=== PATIENT | female | born 1995 | race Caucasian/White ===

== ENCOUNTER 2019-12-17 08:02 | Outpatient (CLI) | payer BC, MEDICAID, SELFPAY ==
[2019-12-17 08:11] VITALS: BMI 35.9
[2019-12-17 08:18] VITALS: BP 144/69; PULSE 81
[2019-12-17 08:22] VITALS: RESP 16; TEMP 37
[2019-12-17 10:07] VITALS: BP 144/69; PULSE 98; RESP 16; TEMP 37
== END 2019-12-17 10:17 | disposition home or self-care (01) ==
LOC: OPOB 08:02 → OBGYN 08:07
PROVIDERS: Family Provider Family Medicine; PCP Family Medicine; Visit Provider Family Medicine
DX: O26.899 Other specified pregnancy related conditions, unspecified trimester (principal); Z3A.00 Weeks of gestation of pregnancy not specified; R10.9 Unspecified abdominal pain
CPT/HCPCS: 59025; 99211

== ENCOUNTER 2019-12-17 18:50 | Inpatient (IN) | payer BC, MEDICAID, SELFPAY ==
[2019-12-17] VITALS (59 sets, daily range): BP systolic 0–159; BP diastolic 0–87; PULSE 62–91; TEMP 36.4–37; O2SAT 92–98; BMI 35.9
--- NOTE | 2019-12-17 18:13 | PM.OBGYHP ---
Providers/Chief Complaint Admitting Physician: Dr. 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 Patient presents at 39 weeks gestation with complaint of contractions onset 1 AM this morning and increasing in frequency and intensity. She was 2 cm dilated and 50% effaced yesterday at her clinic visit and had her membranes swept at that time. She stated that at 1 AM this morning her contractions were every 8 minutes. She timed them, and at 7 AM they were every 6 minutes. At that time she had into the hospital. When she arrived in the labor room this morning she was 3 cm dilated and 90% effaced and -2 station with irregular contractions. She was monitored for 2 hours and found to have no cervical change. She was discharged to home, and I recommended that she contact me at the office for any cervical exams requested during clinic hours. She presented to the office this afternoon at approximately 3 PM with complaint of contractions now at every 5 minutes lasting 45 to 60 seconds. She stated that Tylenol was not helping but that a warm shower did help her relax somewhat. Upon cervical exam she was found to be 4 to 4-1/2 cm dilated, 100% effaced and -1 to -2 station with a bulging bag of water. At this point, with cervical change in all 3 parameters, I advised her to report to the labor room. She reports no bleeding and no leakage of fluid. Her course has been complicated only by anemia of for which she is taken iron. Present Details : 1 Para: 0 Date of Last Menstrual Period: 03/19/19 Calculated Date of Delivery: 12/24/19 Gestational Age Based on Last Menstrual Period: 39 Dating criteria OB: LMP confirmed by 2nd trimester US care: good care Ultrasounds: normal mid trimester US Obstetrical complications: other (Anemia of ) Medical complications OB: none Labs Blood type OB HPI: O (+) positive Rubella: Immune RPR: Negative GBS: Negative HBsAG: Negative Other Lab Information: Antibody Screen: Negative HCT/HBG: Initially 13.0/37.7, 28-week recheck 9.9, 36-week recheck 9.7 Pap Test: Normal Urine Culture/Screen: Negative HIV Counseling/Testing: Negative Hepatitis C: Negative Chlamydia: Negative GC: Negative Varicella Titer: Immune MSAFP/Multiple Markers: Negative Diabetes Screen: 2-hour GTT done at beginning of : Fasting 86, 1 hour 143, 2-hour 121; 1 hour GTT done at 26 to 28 weeks gestation: 114 Tdap: Given 10/05/2019 Urine Drug Screen: Negative Review of Systems Const: Denies: fever : Reports: pelvic pain (Intermittent and consistent with contractions); Denies: vaginal odor, vaginal bleeding or vaginal discharge Medications/Allergies Allergies Allergy/AdvReac Type Severity Reaction Status Date / Time ibuprofen Allergy ADR-Swelling Verified 12/17/19 18:29 of the Eye PFSH 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 PFSH: Medical History (Updated 12/17/19 @ 18:44 by Laya Riley MD) Abnormal Pap smear of cervix Mild intermittent asthma Surgical History (Updated 12/17/19 @ 18:31 by Laya Riley MD) Hx of colposcopy with cervical biopsy Hx of tonsillectomy Family History (Updated 12/17/19 @ 18:35 by Laya Riley MD) Mother Thyroid disorder Father Lung disease Asthma Sister Lung disease Asthma Grandfather Diabetes Social History (Updated 12/17/19 @ 18:37 by Laya Riley MD) Smoking and tobacco status: never smoked Second hand smoke exposure: No Alcohol intake: never Substance/Drug Use: never Adopted: No Caregiver/support person: Yes Lives independently: Yes Marital status: Single Number of children: 0 Number of grandchildren: 0 Highest education level completed: Some College, No Degree 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 heart tones have a baseline in the 130s with moderate variability, many accelerations and no decelerations. Contractions are every 1-1/2 to 3 minutes and of moderate intensity. Const: COMMON NORMALS: oriented x3, healthy appearing, alert and well nourished GENERAL APPEARANCE: cooperative : MANUAL OB EXAM: dilated 4 cm, effaced fully and station (-1 to -2, vertex) Psych: COMMON NORMALS: mental status grossly normal, thought process normal, cooperative, affect normal, speech normal and activity/motor behavior normal Data : 12/17/19 19:00 A&P Assessment and plan (1) 39 weeks gestation of : Status: Acute (2) Spontaneous onset of labor: Patient was admitted to labor and delivery with onset of labor. She denies need for anything for pain right now. We discussed options for pain including an epidural. Status: Acute (3) Anemia affecting : Status: Acute Attestations Medical Necessity Statement*: As patient is laboring and has not yet delivered she will continue to need hospitalization. Coding Level of Care Code Acute Chemical Supervisor for Chg Fwd Exam Expanded Problem Focused Diagnoses 39 weeks gestation of Z3A.39 Spontaneous onset of labor Anemia affecting O99.019
--- NOTE | 2019-12-17 18:34 | PC.NURSE ---
This nurse entered the room and noted pt to be laying supine in the bed. this nurse repositioned pt to left tilt.
[2019-12-17 19:19] LABS: Basophils # 0.1 10^3/uL (0.0-0.1); Basophils % 0.3 %; Eosinophils # 0.1 10^3/uL (0.0-0.8); Eosinophils % 0.3 %; Hematocrit 39.3 % (37.0-47.0); Hemoglobin 13.1 g/dL (11.5-15.3); Lymphocytes # 1.8 10^3/uL (0.8-4.8); Lymphocytes % 11.6 %; Mean Corpuscular HGB Conc 33.3 g/dL (30.0-36.0); Mean Corpuscular Hemoglobin 31.3 pg (28.0-34.0); Mean Platelet Volume 11.6 fL (7.4-10.4); Monocytes # 0.7 10^3/uL (0.2-0.9); Monocytes % 4.4 %; Neutrophils # 12.8 10^3/uL (1.8-7.7); Neutrophils % 82.8 %; Nucleated Red Blood Cells % 0 %; Platelet Count 237 10^3/cmm (130-400); Red Blood Count 4.18 10^6/uL (4.1-5.3); Red Cell Distribution Width 12.8 % (12.1-15.1); White Blood Count 15.5 10^3/uL (4.0-10.0)
[2019-12-17] MEDS: ondansetron 2 mg/ML SDV 2 mL 4 MG IVP (19:51)
--- NOTE | 2019-12-17 19:56 | P.ANESASSM_ITS ---
Pre-Anesthetic Assessment Pre-Anesthetic Assessment: Height/Weight: Height 1.6 m Weight 92.079 kg Temp Pulse BP Pulse Ox 97.6 F 70 140/67 98 12/17/19 18:05 12/17/19 20:25 12/17/19 20:25 12/17/19 20:20 Preop Diagnosis: IUP 38.6 wks Was Beta Lisa taken within 24 hours: N/A Social: Social History: No alcohol and No tobacco Exam: Pre-Anes Outpt Exam: alert, oriented x 3, clear to auscultation bilaterally and regular rate & rhythm Airway: Submandibular: WNL Cervical ROM: WNL MP: 2 Dentition: Chipped History/ROS: No significant history except as noted Pulmonary: Pulmonary: Asthma CV/HEM: CV/HEM: None reported : : None reported Hepatic: Hepatic: None reported GI: GI: None reported Metabolic: Metabolic: None reported Musc/skel: Musc/skel: None reported Neuropsych: Neuropsych: None reported Anesthetic Plan: ASA status: 2 Anesthesia: Anesthesia Evaluation and Regional (specify below) (labor epidural) Risk of > 500 ml blood loss (7ml/kg in children): No Meds/Allergies Current Medications: Current Medications Generic Name Dose Route Start Last Admin Trade Name Freq PRN Reason Stop Dose Admin Ondansetron HCl 4 mg 12/17/19 16:17 12/17/19 19:51 Zofran IVP 4 mg Q4H PRN Administration NAUSEA AND VOMITI NG PFSH Anesthesia PFSH: Medical History (Updated 12/17/19 @ 18:44 by Laya Riley MD) Abnormal Pap smear of cervix Mild intermittent asthma Surgical History (Updated 12/17/19 @ 18:31 by Laya Riley MD) Hx of colposcopy with cervical biopsy Hx of tonsillectomy Family History (Updated 12/17/19 @ 18:35 by Laya Riley MD) Mother Thyroid disorder Father Lung disease Asthma Sister Lung disease Asthma Grandfather Diabetes Social History (Updated 12/17/19 @ 18:37 by Laya Riley MD) Smoking and tobacco status: never smoked Second hand smoke exposure: No Alcohol intake: never Substance/Drug Use: never Adopted: No Caregiver/support person: Yes Lives independently: Yes Marital status: Single Number of children: 0 Number of grandchildren: 0 Highest education level completed: Some College, No Degree 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
--- NOTE | 2019-12-17 20:28 | ANES.PROC ---
Anesthesia Procedures Procedure/Date: 12/17/19 Epidural: Time Out Performed: Yes Consents Signed: Procedure Consent Lumbar Level: L3-L4 Epidural position: sitting Epidural procedure: sterile prep of area, 1% lidocaine to numb the area, 18 g needle, negative for paresthesia passed, neg for paresthesia, test dose given (4ml), 1.5% xylocaine 1:200k epi, placed PCEA, no systemic response, sterile dressing applied, L.U.D. no apparent complications and 0.2% Ropiavacaine @ mls/hr (12)
--- NOTE | 2019-12-17 23:46 | P.PN_ITS ---
STEEL MOLDER Subjective Subjective: Interval history: Patient underwent amniotomy at 1853, and this was productive of a moderate amount of clear fluid. Her contractions became more intense, and she opted for an epidural. She received it and became comfortable and was then found to be 5-1/2 cm dilated 100% effaced and 0 station. In the 10:00 hour this evening she was vomiting, and recheck of her ce rvix found to have distant anterior rim and the vertex at +1 to +2 station. Labor: Station: 0 Amniotic Membrane Status: Ruptured Monitor Mode: External Contraction Pattern: Irregular Status: Category l Vitals/I&O/Wt Last Vital Signs Temp 97.6 F 12/17/19 18:05 Pulse 85 12/17/19 23:42 BP 159/84 12/17/19 23:42 Pulse Ox 98 12/17/19 20:55 Weight last 48 hrs Weight 203 lb Physical Exam Narrative: EXAM NARRATIVE: heart tones are category 1 with a baseline in the 130s with moderate variability, many accelerations and no decelerations. Her contractions are irregular and every minute and 1/2 to 3 minutes. : MANUAL OB EXAM: dilated (Only an anterior rim remains), effaced fully and station +2 Data : 12/17/19 19:00 A&P Additional A&P Information Patient continues to progress well. Anticipate beginning the second stage of labor soon. Attestations Medical Necessity Statement*: As patient has not yet delivered she will continue to require inpatient hospitalization. Coding Level of Care Code Acute Community Affairs Director for Estevan Meza
[2019-12-18] VITALS (50 sets, daily range): BP systolic 0–152; BP diastolic 0–95; PULSE 46–90; RESP 16–18; TEMP 36.7–37.3
--- NOTE | 2019-12-18 05:25 | P.PCNOB_ITS ---
Delivery Note: Date of delivery: December 18, 2019 Pre-delivery diagnoses: 39 weeks gestation Spontaneous onset of labor Anemia affecting Amniotomy productive of a moderate amount of clear fluid Epidural anesthesia Post-delivery diagnoses: 39-week gestation Spontaneous onset of labor Anemia affecting Amniotomy productive of a moderate amount of clear fluid Epidural anesthesia Spontaneous vaginal delivery of a viable male First-degree right vaginal wall laceration, no repair needed Second-degree posterior distal midline vaginal wall laceration status post repair Delivering Physician: Dr. Riley Estimated blood loss (mL): 300 Pre-Delivery Course: Patient arrived in the labor room in the 7:00 hour the morning of 12/17/2019. She was cassie irregularly and infrequently and was observed for a few hours, and, with no cervical change was sent home. At that time she was 3 cm dilated and 90% effaced and a -3 station, and in the office on 12/16/2019 she was 2 cm dilated and 50% effaced and -3 station prior to having her membranes swept at that visit. She then presented to clinic later in the afternoon of 12/17/2019 stating that her contractions had increased in frequency and intensity since her discharge from the labor room at approximately 10 AM that morning. Upon recheck in the clinic yesterday afternoon at approximately 3 PM she was 4 to 4-1/2 cm dilated, 100% effaced, -2 station and with a bulging bag of water. At that time she was sent to the labor room as it was felt that she had actually started into labor at that time. She continued to contract and dilate, and at 1853 she was 5 cm dilated, 100% effaced and -1 station. At that time we performed amniotomy which was productive of a moderate amount of clear fluid. Contractions became more intense, and she opted for an epidural. She received it and became comfortable and then gradually dilated until she had an anterior rim of cervix remaining. It took her a few hours and several position changes for the room to resolve. Baby was occiput posterior at that time. She was also +2 station at that time. She was finally found to be completely dilated at 2:28 AM on 12/18/2019. Delivery: We began the active portion of the second stage of her labor at 2:34 AM, and at 4:56 AM after 2 hours and 22 minutes of pushing she delivered a viable male infant. Head was ASH. There was no nuchal cord. Bulb suctioning was done upon delivery of baby's head and then of baby's body. Baby was placed on maternal abdomen while cord was clamped by myself after a delay of approximately 30 seconds. Maternal grandmother cut the cord, and cord blood was obtained. Gentle traction was placed on the cord, and intravenous Pitocin was begun in routine doses. The placenta was delivered intact at 5 AM. There were no abnormalities noted. Uterine exploration was done immediately and revealed a firm uterus, and a few small clots were readily manually extracted. The perineum and cervix were inspected, and a right lateral vaginal wall la ceration was noted which appeared to be first-degree as well as a distal posterior midline vaginal wall laceration which appeared to be second-degree. The distal vaginal wall laceration was repaired with 2-0 chromic in standard fashion with her epidural as anesthesia. The right vaginal wall laceration was hemodynamically stable and did not require repair. EBL was approximately 300 mL's. Post-Delivery Status: Mother was stable, and baby required only routine resuscitative measures including DeLee suctioning productive of 4 mL's of clear fluid. Baby weighed 8 pounds 6 ounces/3 805 g and was 21-1/2 inches in length. Apgars were 8 at 1 minute and 9 at 5 minutes. A&P Assessment and plan (1) 39 weeks gestation of : Status: Resolved (2) Spontaneous onset of labor: Status: Resolved (3) Anemia affecting : Status: Resolved (4) Normal spontaneous vaginal delivery: Routine orders Status: Acute (5) Laceration of vaginal wall or sulcus without perineal laceration during delivery: Status: Acute Coding Level of Care Code Acute Supervisor In Charge for Chg Fwd Diagnoses 39 weeks gestation of Z3A.39 Spontaneous onset of labor Anemia affecting O99.019 Normal spontaneous vaginal delivery O80 Laceration of vaginal wall or sulcus without perineal laceration during delivery O71.4
[2019-12-18] MEDS: HYDROcodone-acetaminophen 5-325 mg Tablet PO ×2 (07:38→19:52)
[2019-12-18] MEDS: benzocaine-menthol 78 gm Canister 1 SPRAY TOPICAL (07:40)
[2019-12-18] MEDS: docusate sodium 100 mg Capsule PO ×2 (07:40→17:37)
[2019-12-18] MEDS: prenatal vitamin Capsule 1 CAP PO (07:40)
[2019-12-18] MEDS: lanolin oint 7 gm 1 APPLIC TOPICAL (07:40)
[2019-12-18 18:19] LABS: Hematocrit 30.1 % (37.0-47.0); Hemoglobin 10.2 g/dL (11.5-15.3); Mean Corpuscular HGB Conc 33.9 g/dL (30.0-36.0); Mean Corpuscular Hemoglobin 31.2 pg (28.0-34.0); Mean Platelet Volume 11.2 fL (7.4-10.4); Platelet Count 220 10^3/cmm (130-400); Red Blood Count 3.27 10^6/uL (4.1-5.3); Red Cell Distribution Width 12.8 % (12.1-15.1); White Blood Count 19.3 10^3/uL (4.0-10.0)
[2019-12-19 04:00] VITALS: BP 122/81; PULSE 71; RESP 16
--- NOTE | 2019-12-19 08:25 | ANE.PACU2 ---
 Inpatient post-anesthesia follow up: Airway intact: Yes Vital signs: Temperature 98.1 F Pulse Rate 71 Respiratory Rate 16 Blood Pressure 122/81 Pulse Oximetry 98 Oxygen Delivery Me thod Room Air Oxygen Flow Rate Fraction of Inspir ed Oxygen Hydration adequate: Yes Nausea and vomiting: No Mental status: Baseline Additional Comments: no headaches, no signs of infection, no lower extremity weakness, no urinary retention
--- NOTE | 2019-12-19 09:26 | P.DS_ITS ---
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 Date of Admission: 12/17/19 18:50 Date of Discharge: 12/19/19 Attending Provider at Admission: Laya Riley MD Attending Provider at Discharge: Laya Riley MD Primary Care Provider: Laya Riley MD Diagnoses at Discharge Discharge Diagnosis (1) 39 weeks gestation of : Status: Resolved (2) Spontaneous onset of labor: Status: Resolved (3) Anemia affecting : Status: Resolved (4) Normal spontaneous vaginal delivery: Status: Acute (5) Laceration of vaginal wall or sulcus without perineal laceration during delivery: Status: Acute Reason for Visit Reason for Visit: Reason For Visit: abd pain Hospital Course Hospital Course: Please see history and physical for admission details. 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 Her contractions were not very frequent. Throughout the course of the day they increased in frequency and intensity and upon recheck in the office at 3 PM that same day she was 4 cm dilated, 100% effaced and -1 to -2 station with a bulging bag of water. She stated that her contractions were more frequent than every 5 minutes, and so I sent her to the labor room for further observation. Within a few hours she was 5 cm dilated, 100% effaced and -1 station and amniotomy was performed. She gradually dilated to an anterior rim which took a few hours to resolve. She then pushed for 2-1/2 hours and delivered a viable male infant weighing 8 pounds 6 ounces just before 5 AM on 12/18/2019. She then had quite a bit of perineal swelling but was able to void without catheterization. She states she has hemorrhoids as well but the sitz baths have helped with all of that and she is only needed 2 doses of [place] throughout this time. Discharge Summary: She states that her bleeding is about like a heavy. And that her pain is tolerable, as her last dose of [place] was last evening. She is unsure of what she will do for control at this time but will discuss it at her visit. Her breasts are sore, and so she is supplementing with formula but does plan to breast-feed when her milk comes in. Information Peripartum Data: Infant Delivery Method: Vaginal Physical Exam Const: COMMON NORMALS: no apparent distress, oriented x3, healthy appearing, alert and well nourished Neck/C-Spine: COMMON NORMALS: no JVD Resp: COMMON NORMALS: normal respiratory effort, no use of accessory muscles and clear to auscultation bilaterally AUSCULTATION: clear to auscultation bilaterally Cardio: COMMON NORMALS: no JVD, regular rate, regular rhythm, S1 normal heart sound, S2 normal heart sound, no gallops, no clicks, no murmurs, no rub and peripheral pulses 2+ throughout RATE: regular rate RHYTHM: regular rhythm HEART SOUNDS: S1 normal and S2 normal PERIPHERAL PULSES: pulses 2+ throughout : UTERUS PALPATION: Yes other OB (Fundus is firm and 2 to 3 fingerbreadths below the umbilicus, nontender) Extremity: COMMON NORMALS: no clubbing, cyanosis or edema Neuro: COMMON NORMALS: oriented x3 SENSORIUM/ORIENTATION: Yes alert Psych: COMMON NORMALS: mental status grossly normal, thought process normal, cooperative, affect normal, speech normal and activity/motor behavior normal SPEECH: Yes normal speech THOUGHT PROCESS: normal thought process Discharge Data Data Completed and Pending: Labs from last 24 hours 12/18/19 18:05 WBC 19.3 H RBC 3.27 L Hgb 10.2 L Hct 30.1 L MCV 92.0 MCH 31.2 MCHC 33.9 RDW 12.8 Plt Count 220 MPV 11.2 H Vitals: Last Vital Signs Temp 98.1 F 12/18/19 19:00 Pulse 71 12/19/19 04:00 Resp 16 12/19/19 04:00 BP 122/81 12/19/19 04:00 Pulse Ox 98 12/17/19 20:55 Discharge Plan Discharge Patient Disposition: Home, Self-Care Condition: Stable Prescriptions: Continued 1 tab PO DAILY RF: 0 Discontinued ferrous sulfate 1 tab PO TID RF: 0 Discharge Orders: Discharge Order (Routine); Ordered 12/19/19 Ordered By: Laya Riley Referrals: Laya Riley MD [Primary Care Provider] - 6 Weeks (Please call to schedule a 6-week visit with Dr. Riley.) Discharge Diet: Usual diet Discharge Activity: Limit activity as instructed Discharge Attestations KNOT TYING OPERATOR Time Spent in Discharge Care*: less than 30 min Specific Discharge Activities: Specific discharge activities: educating patient, documenting/other paperwork and evaluating patient/reviewing data Status at Discharge: Cognitive status at discharge: cognitively intact , Behavioral status at discharge: cooperative , Functional status at discharge: independent ambulation Overall status at discharge: patient is progressing back to baseline Coding Level of Care Code Acute Jukebox Route Driver for Chg Fwd Diagnoses 39 weeks gestation of Z3A.39 Spontaneous onset of labor Anemia affecting O99.019 Normal spontaneous vaginal delivery O80 Laceration of vaginal wall or sulcus without perineal laceration during delivery O71.4
[2019-12-19 09:38] VITALS: BP 120/81; PULSE 86; RESP 16; TEMP 36.4
[2019-12-19] MEDS: docusate sodium 100 mg Capsule PO (09:40)
[2019-12-19] MEDS: prenatal vitamin Capsule 1 CAP PO (09:40)
[2019-12-19] MEDS: HYDROcodone-acetaminophen 5-325 mg Tablet PO (11:07)
[2019-12-19 11:32] VITALS: BP 120/81; PULSE 86; RESP 16; TEMP 36.4; O2SAT 99
== END 2019-12-19 11:27 | disposition home or self-care (01) | DRG 807 ==
LOC: OBGYN 12-19 09:33 → OPOB 12-20 08:14
PROVIDERS: Admitting Provider Family Medicine; Family Provider Family Medicine; PCP Family Medicine; Visit Provider Family Medicine
DX: O99.02 Anemia complicating childbirth (principal); Z37.0 Single live birth; D64.9 Anemia, unspecified; Z3A.39 39 weeks gestation of pregnancy; O70.0 First degree perineal laceration during delivery
CPT/HCPCS: 12345; 36415; 51702; 59025; 59409; 85025; 85027; 96375; 99211; J2405

== ENCOUNTER 2023-05-11 22:49 | Emergency (ER) | payer BC, MEDICAID, SELFPAY ==
[2023-05-11 22:50] VITALS: BP 114/74; PULSE 59; RESP 16; TEMP 36.3; O2SAT 99
[2023-05-11] MEDS: diphenhydrAMINE 50 mg/mL SDV 1mL IVP (23:14)
[2023-05-11] MEDS: famotidine 20 mg/2 mL INJ 40 MG IVP (23:15)
--- NOTE | 2023-05-11 23:16 | W.ED.ALLEREA ---
HPI - Allergic Reaction General: Chief complaint: Allergic Reaction Stated complaint: allergic rxn Time Seen by Provider: 05/11/23 22:52 Source: patient Mode of arrival: ambulatory Limitations: no limitations History of Present Illness: HPI narrative: Patient presents emergency department today for evaluation treatment of concerns for allergic reaction. Patient states that last night she had had some [place] and shortly after began developing itchy spots on her body. She has continued to have the spots and have developed more in addition to new onset of facial swelling, sensation of thickening of her tongue and, sensation of scratchy and tight throat. Patient reports no previous allergic reactions that she is aware of. She does have an underlying history of asthma. Patient has been trying cool baths and Benadryl without improvement of her symptoms. Review of Systems General: Reports: 10 or more systems reviewed and unremarkable except in HPI and below PFSH ED PFSH: Medical History Abnormal Pap smear of cervix Mild intermittent asthma Surgical History Hx of colposcopy with cervical biopsy Hx of tonsillectomy Family History Mother Thyroid disorder Father Lung disease Asthma Sister Lung disease Asthma Grandfather Diabetes Social History Smoking and tobacco status: never smoked Second hand smoke exposure: No Alcohol intake: never Substance/Drug Use: never Adopted: No Caregiver/support person: Yes Lives independently: Yes Marital status: Single Number of children: 0 Number of grandchildren: 0 Highest education level completed: Some College, No Degree 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 No signs of any obvious angioedema of the lips or tongue. The airway is still patent. Mucous membranes are moist. Eye: COMMON NORMALS: Equal, round and reactive pupils present, EOMs intact bilaterally and conjunctivae normal CONJUNCTIVA: Yes conjunctivae normal PUPIL: Yes Equal, round and reactive pupils present Neck/C-Spine: COMMON NORMALS: no JVD Lymph: LYMPHATIC: no lymphadenopathy noted Resp: COMMON NORMALS: normal respiratory effort, No retractions and No use of accessory muscles OTHER: No stridor and no wheezing on auscultation. Cardio: COMMON NORMALS: no JVD and regular rate RATE: regular rate : COMMON NORMALS: Yes no CVA tenderness BLADDER/KIDNEY EXAM: Yes no CVA tenderness Back/Pelvis: COMMON NORMALS: no CVA tenderness, thoracic and lumbar spine normal to inspection and thoraco-lumbar ROM normal Extremity: COMMON NORMALS: normal to inspection, full ROM and no pedal edema Neuro: COMMON NORMALS: patient oriented x3 SENSORIUM/ORIENTATION: Yes alert Skin: COMMON NORMALS: turgor normal GENERAL SKIN EXAM: turgor normal OTHER: Patient with active urticaria noted on the neck and exposed extremities. Course Vital Signs: Vital signs: Vital Signs Temperature 97.4 F L 05/11/23 22:50 Pulse Rate 67 05/12/23 00:29 Respiratory Rate 16 05/12/23 00:29 Blood Pressure 110/73 05/12/23 00:29 Pulse Oximetry 99 05/12/23 00:29 Oxygen Delivery Me thod Room Air 05/12/23 00:16 MDM - Allergic Reaction Medical Decision Making Patient does have urticaria present across her body which she reports has been present now for approximately 24 hours without improvement with antihistamines. Given her complaints of tightness in her throat, we did proceed on with IV medication. Patient received IV fluids, steroids, and antihistamines. On reexamination, patient had significant improvement of the urticaria and we discussed continue treatment for the next several days. We discussed rebound reactions. She is given a prescription for famotidine, prednisone, and encouraged to continue using first and second generation antihistamines. Gave her strict return precautions for any signs of angioedema and explicitly went over those signs and symptoms with her. Patient verbalized her understanding and agreement to treatment plan. Differential Diagnosis Likely allergic reaction and urticaria; Unlikely anaphylaxis, angioedema, contact dermatitis or viral enanthem Discharge Plan Discharge Patient Disposition: Home Clinical Impression: Allergic reaction Condition: Stable Prescriptions: New famotidine 20 mg tablet 20 mg PO BID Qty: 10 0RF prednisone 20 mg tablet See Rx Instructions .ROUTE .COMPLEX Qty: 13 0RF Rx Instructions: take 3 tablets daily for 2 days. Then take 2 tablets daily for 2 days. then take one tablet daily until gone. No Action 1 tab PO DAILY Discharge Orders: Discharge ED (Routine); Ordered 05/12/23 Ordered By: Lorena Ramos Discharge Diet: Usual diet Discharge Activity: Increase activity as tolerated Patient Instructions: Allergic Reaction, Angioedema (ED) Activity Restrictions/Additional Instructions: Evaluation today is suspicious for allergic reaction given that you have hives confluently on your body. While I do not appreciate any signs of angioedema, we do need to treat you to calm this reaction. Unfortunately, the offending agent-what ever it is, can still be found in your system for several days so, treatment usually consists of steroids and various antihistamines for several days. Have given you a prescription for steroids. Have also given you prescription for Pepcid. Continue to take Benadryl 25 to 50 mg every 6 hours and, do also recommend taking a daily Zyrtec/Suzanne/Claritin. I have included some information about angioedema as it will be extremely important you return to the emergency department immediately if any of the symptoms occur. If you have any difficulty breathing, develop significant swelling of the lips, tongue, throat, develop stridor, or have wheezing you need to be seen in the ER. Coding Level of Care Code ED General Manager In Training for Estevan Meza
[2023-05-11] MEDS: methylPREDNISolone sod succ 125 MG in water for injection-sterile 2 ML 24 MG IVP (23:17)
[2023-05-11] MEDS: sodium chloride 0.9% 250 ML IV (23:22)
[2023-05-11 23:24] VITALS: BP 130/69; PULSE 66; RESP 16; O2SAT 96
[2023-05-12 00:16] VITALS: BP 110/73; PULSE 60; RESP 18; O2SAT 98
[2023-05-12 00:29] VITALS: BP 110/73; PULSE 67; RESP 16; O2SAT 99
== END 2023-05-12 00:42 | disposition home or self-care (01) ==
PROVIDERS: Emergency Provider Physician Assistant
DX: T78.40XA Allergy, unspecified, initial encounter (principal)
CPT/HCPCS: 96374; 96375; 99284; J1200; J2930; J3490; J7050

== ENCOUNTER → 2023-06-13 09:25 | Outpatient (BNVA) | payer BC, OTHER, MEDICAID, SELFPAY | PROVIDERS: PCP Family Medicine; Visit Provider Family Medicine | DX: Z51.81 Encounter for therapeutic drug level monitoring (principal); Z13.220 Encounter for screening for lipoid disorders; R53.81 Other malaise; R53.83 Other fatigue; O71.4 Obstetric high vaginal laceration alone; O80 Encounter for full-term uncomplicated delivery | CPT/HCPCS: 80053; 80061; 84443; 85025 ==

== ENCOUNTER → 2024-02-26 11:51 | Outpatient (BNVA) | payer BC, OTHER, MEDICAID, SELFPAY | PROVIDERS: PCP Family Medicine; Visit Provider Clinical Nurse Specialist Adult Health | DX: N92.6 Irregular menstruation, unspecified (principal); J06.9 Acute upper respiratory infection, unspecified; J02.9 Acute pharyngitis, unspecified | CPT/HCPCS: 81025; 87880 ==

== ENCOUNTER → 2024-03-11 11:29 | Outpatient (BNVA) | payer MEDICAID, SELFPAY | PROVIDERS: PCP Family Medicine; Visit Provider Family Medicine | DX: Z34.90 Encounter for supervision of normal pregnancy, unspecified, unspecified trimester (principal); R30.0 Dysuria; R10.2 Pelvic and perineal pain; J45.20 Mild intermittent asthma, uncomplicated | CPT/HCPCS: 80307; 81000; 87086; 87491; 87591; 87624 ==

== ENCOUNTER 2024-03-19 11:25 | Outpatient (CLI) | payer OTHER, SELFPAY ==
--- NOTE | 2024-03-19 11:30 | US_ITS ---
WS: [id number] TRANSABDOMINAL FIRST TRIMESTER ULTRASOUND REASON FOR EXAM: Within 1 week if possible, having some RLQ pain : 2 PARA: 1 COMPARISON: None available. FINDINGS: Cervix is closed. Single live intrauterine . [place] rump length measuring 2.3 cm. 9W0D Gestational sac measures 9w0d cm. cardiac tones 169 BPM. Estimated date of delivery 10/22/2024. Ovaries not visualized due to overlying bowel gas. Uterus measures 6.9 x 6 cm. Uterine trace 11.66 cm. US/US OB <= 14 weeks fetus [id number] IMPRESSION: Viable single intrauterine 9 weeks gestation.
== END 2024-03-19 11:26 | disposition home or self-care (01) ==
LOC: RAD 11:27
PROVIDERS: PCP Family Medicine; Visit Provider Family Medicine
DX: O26.891 Other specified pregnancy related conditions, first trimester (principal); Z3A.09 9 weeks gestation of pregnancy; R10.2 Pelvic and perineal pain
CPT/HCPCS: 76801

== ENCOUNTER → 2024-04-01 14:27 | Outpatient (BNVA) | payer OTHER, SELFPAY | PROVIDERS: PCP Family Medicine; Visit Provider Family Medicine | DX: Z34.90 Encounter for supervision of normal pregnancy, unspecified, unspecified trimester (principal) | CPT/HCPCS: 83540; 83550; 84144; 84443; 84702; 85025; 86592; 86762; 86803; 86850; 86900; 87340; 87806 ==

== ENCOUNTER 2024-04-05 19:57 | Emergency (ER) | payer OTHER, MEDICAID, SELFPAY ==
[2024-04-05 20:13] VITALS: BP 116/77; PULSE 72; RESP 16; TEMP 36.8; O2SAT 99
[2024-04-05 21:18] LABS: Alanine Aminotransferase 34 U/L (0-33); Alkaline Phosphatase 83 U/L (35-105); Anion Gap 16.8 (5-19); Aspartate Amino Transferase 26 U/L (0-32); Blood Urea Nitrogen 6 mg/dL (6-20); Calcium 8.9 mg/dL (8.5-10.5); Carbon Dioxide 24 mmol/L (22-29); Chloride 102 mmol/L (98-107); Creatinine Clr Calc Pharmacy 143.7772; Globulin 3.5 g/dL (1.3-4.6); Glomerular Filtration Rate 120.8 mL/min (90-130); Glucose 91 mg/dL (65-115); Lipase 35 U/L (13-60); Osmolality Calculated 285 mOsm/kg (285-295); Potassium 3.8 mmol/L (3.5-5.1); Sodium 139 mmol/L (136-145); Total Bilirubin 0.2 mg/dL (0.15-1.2); Total Protein 7.5 g/dL (6.6-8.7)
== END 2024-04-05 22:02 | disposition left against medical advice (07) ==
LOC: ER 20:02
PROVIDERS: Emergency Medicine; Emergency Provider Family Medicine; PCP Family Medicine
DX: Z53.21 Procedure and treatment not carried out due to patient leaving prior to being seen by health care provider (principal)
CPT/HCPCS: 36415; 80053; 83690; 85025

== ENCOUNTER → 2024-05-11 15:16 | Outpatient (BNVA) | payer OTHER, MEDICAID, SELFPAY | PROVIDERS: PCP Family Medicine; Visit Provider Family Medicine | DX: Z34.80 Encounter for supervision of other normal pregnancy, unspecified trimester (principal) | CPT/HCPCS: 81511 ==

== ENCOUNTER 2024-06-04 12:19 | Outpatient (CLI) | payer OTHER, MEDICAID, SELFPAY ==
--- NOTE | 2024-06-04 12:45 | USR_ITS ---
PROCEDURE INFORMATION: Exam: US After First Trimester, Transabdominal Exam date and time: 06/04/2024 1:02 PM Age: 28 years old Clinical indication: Screening exam; Routine US, uterus; Additional info: Anatomy US - 4 weeks from now LABS AND CLINICAL REPORTS: Gestational age (Established): 20 w 0 d Estimated due date (Established): 10/22/2024 TECHNIQUE: Imaging protocol: Real-time transabdominal obstetrical ultrasound of the maternal pelvis and a second or third trimester with image documentation. COMPARISON: US OB <= 14 weeks fetus [id number] 03/19/2024 11:33 AM FINDINGS: Gestation: Single live intrauterine gestation. heart rate: 145 bpm. presentation and position: Vertex. Placenta: Unremarkable. No subchorionic bleed. Placenta is anterior. Amniotic fluid (Qualitative): Amniotic fluid is normal for gestational age. ANATOMY: midline falx: Normal cerebellum: Normal lateral ventricles: Normal cisterna magna: Normal choroid plexus: Normal face: Normal heart four-chamber view, heart size and position: Not well visualized heart right ventricular outflow tract: Not well visualized heart left ventricular outflow tract: Not well visualized kidneys: Normal stomach: Normal urinary bladder: Normal spine: Normal Umbilical cord and insertion: Normal. Normal 3 vessel cord upper limbs: Normal lower limbs: Normal external genitalia: Normal BIOMETRY: Gestational age (AUA): 19 weeks 4 days Estimated due date (AUA): 10/25/2024 Estimated weight: 309.86 g. EFW by AC, BPD, FL, HC, [place] 1985, 31% percentile Biparietal diameter (BPD): 4.33 cm. EGA (BPD) is 19 w 1 d. 15.7 % percentile Head circumference (HC): 16.48 cm. EGA (HC) is 19 w 1 d. 11.5 % percentile Abdominal circumference (AC): 14.32 cm. EGA (AC) is 19 w 5 d. 33 % percentile Femur length (FL): 3.21 cm. EGA (FL) is 20 w 0 d. 42.1 % percentile HC/AC: 1.15. (Normal range: 1.08 - 1.26) FL/HC: 19.48. (Normal range: 16.5 - 19.16) FL/BPD: 74.13 FL/AC: 22.42 MATERNAL: Uterus: Unremarkable. Cervix: Cervical length measures 4.9 cm. Right ovary/adnexa: Obscured by lack of adequate acoustic window. Left ovary/adnexa: Obscured by lack of adequate acoustic window. Intraperitoneal space: No intraperitoneal free fluid. US/US OB >= 14 weeks fetus [id number] IMPRESSION: Single live intrauterine gestation with estimated age of 19 weeks 4 days and weight of 309.86 g
== END 2024-06-04 12:20 | disposition home or self-care (01) ==
LOC: RAD 12:20
PROVIDERS: PCP Family Medicine; Visit Provider Family Medicine
DX: Z34.80 Encounter for supervision of other normal pregnancy, unspecified trimester (principal)
CPT/HCPCS: 76805; 81511

== ENCOUNTER 2024-07-09 13:35 | Outpatient (CLI) | payer OTHER, MEDICAID, SELFPAY ==
--- NOTE | 2024-07-09 13:30 | USR_ITS ---
PROCEDURE INFORMATION: Exam: US , Limited Exam date and time: 07/09/2024 1:51 PM Age: 28 years old Clinical indication: Screening exam; Routine US, uterus; Additional info: heart follow up imaging - 4 weeks from now LABS AND CLINICAL REPORTS: Gestational age (Established): 25 w 0 d Estimated due date (Established): 10/22/2024 TECHNIQUE: Imaging protocol: Real-time ultrasound of the maternal uterus with image documentation. Exam focused on the clinical indication. COMPARISON: US OB >= 14 weeks fetus [id number] 06/04/2024 1:02 PM FINDINGS: Gestation: Intrauterine gestation. heart rate: 127 bpm ANATOMY: heart right ventricular outflow tract: Right ventricular outflow tract is normal. heart left ventricular outflow tract: Left ventricular outflow tract is normal. Other findings: Four-chamber view of the heart is normal in appearance. US/US OB limited [id number] IMPRESSION: 1. Four-chamber heart and right and left ventricular outflow tracts appear within normal limits. Remaining anatomy assessed on prior ultrasound. 2. Normal heart rate.
== END 2024-07-09 13:36 | disposition home or self-care (01) ==
PROVIDERS: PCP Family Medicine; Visit Provider Family Medicine
DX: Z34.82 Encounter for supervision of other normal pregnancy, second trimester (principal)
CPT/HCPCS: 76815; 82950

== ENCOUNTER → 2024-07-15 13:11 | Outpatient (BNVA) | payer OTHER, MEDICAID, SELFPAY | PROVIDERS: PCP Family Medicine; Visit Provider Family Medicine | DX: Z34.90 Encounter for supervision of normal pregnancy, unspecified, unspecified trimester (principal); N89.8 Other specified noninflammatory disorders of vagina; R30.0 Dysuria | CPT/HCPCS: 81000; 81513; 87086; 87481; 87491; 87591; 87661 ==

== ENCOUNTER 2024-07-24 09:32 | Outpatient (CLI) | payer OTHER, MEDICAID, SELFPAY ==
[2024-07-24 09:35] VITALS: BMI 35.2
[2024-07-24 09:55] VITALS: BP 107/55; PULSE 70
[2024-07-24 10:12] LABS: Bilirubin Urine Negative (Negative); Blood Urine Negative (Negative); Glucose Urine UA Negative (Normal); Ketones Urine Negative (Negative); Leukocyte Esterase Urine Negative (Negative); Nitrate Urine Negative (Negative); Protein Urine Negative (Negative); Specific Gravity, Urine 1.013 (1.005-1.030); Urine Appearance Clear (CLEAR); Urine Color Yellow (Yellow)
[2024-07-24 10:14] LABS: Bacteria Urine Trace /hpf; Hyaline Casts Urine 0-4 /lpf; RBC Urine 0-2 /hpf (0-2); Squamous Epithelial Cell Urine 0-5 /hpf (0-5); WBC Urine 0-5 /hpf (0-5)
[2024-07-24 10:15] VITALS: BP 102/56; PULSE 70
[2024-07-24 18:25] VITALS: BP 102/56; PULSE 70; RESP 16; O2SAT 99
== END 2024-07-24 10:30 | disposition home or self-care (01) ==
LOC: OPOB 09:37 → OBGYN 09:37
PROVIDERS: Family Medicine; PCP Family Medicine; Visit Provider Family Medicine
DX: O26.899 Other specified pregnancy related conditions, unspecified trimester (principal); Z3A.00 Weeks of gestation of pregnancy not specified; R10.9 Unspecified abdominal pain
CPT/HCPCS: 81001; 99211

== ENCOUNTER → 2024-09-06 10:16 | Outpatient (BNVA) | payer OTHER, MEDICAID, SELFPAY | PROVIDERS: PCP Family Medicine; Visit Provider Family Medicine | DX: Z51.81 Encounter for therapeutic drug level monitoring (principal) | CPT/HCPCS: 85025 ==

== ENCOUNTER → 2024-09-24 09:38 | Outpatient (BNVA) | payer OTHER, MEDICAID, SELFPAY | PROVIDERS: PCP Family Medicine; Visit Provider Family Medicine | DX: Z34.90 Encounter for supervision of normal pregnancy, unspecified, unspecified trimester | CPT/HCPCS: 87081 ==

== ENCOUNTER 2024-10-16 22:48 | Outpatient (CLI) | payer OTHER, MEDICAID, SELFPAY ==
[2024-10-16 22:48] VITALS: BMI 35.6
[2024-10-16 23:04] VITALS: BP 130/60; PULSE 70
[2024-10-16 23:05] VITALS: TEMP 35.2
[2024-10-16 23:20] VITALS: BP 131/67; PULSE 69
[2024-10-16 23:34] VITALS: BP 124/68; PULSE 71
[2024-10-16 23:49] VITALS: BP 128/73; PULSE 67
[2024-10-16 23:52] LABS: Actim Prom Negative
[2024-10-17 00:04] VITALS: BP 121/69; PULSE 77
[2024-10-17 00:20] VITALS: BP 121/59; PULSE 64
[2024-10-17 00:34] VITALS: BP 117/56; PULSE 72
[2024-10-17 00:49] VITALS: BP 113/57; PULSE 72
[2024-10-17 00:52] VITALS: BP 113/57; PULSE 72; RESP 16; TEMP 36.6; O2SAT 99
== END 2024-10-17 01:03 | disposition home or self-care (01) ==
LOC: OPOB 22:52 → OBGYN 22:53
PROVIDERS: PCP Family Medicine; Visit Provider Family Medicine
DX: O26.899 Other specified pregnancy related conditions, unspecified trimester (principal); Z3A.00 Weeks of gestation of pregnancy not specified; R10.9 Unspecified abdominal pain
CPT/HCPCS: 59025; 83986; 84112; 99211

== ENCOUNTER 2024-10-19 06:45 | Inpatient (IN) | payer OTHER, MEDICAID, SELFPAY ==
[2024-10-19] VITALS (77 sets, daily range): BP systolic 95–145; BP diastolic 50–78; PULSE 62–94; TEMP 35.8–36.7; O2SAT 98–100; BMI 36.7
[2024-10-19 06:56] LABS: Basophils % 0.4 %; Eosinophils # 0.6 10^3/uL (0.0-0.8); Eosinophils % 6.3 %; Hematocrit 35.7 % (36-47); Lymphocytes # 2.6 10^3/uL (0.8-4.8); Lymphocytes % 28.9 %; Mean Corpuscular HGB Conc 33.9 g/dL (30-55); Mean Corpuscular Hemoglobin 31.8 pg (27-33); Mean Corpuscular Volume 93.7 fl (85-98); Mean Platelet Volume 10.9 fL (7.4-10.4); Monocytes # 0.4 10^3/uL (0.2-0.9); Neutrophils # 5.38 10^3/uL (1.8-7.7); Nucleated Red Blood Cells % 0 %; Platelet Count 229 10^3/cmm (157-399); Red Blood Count 3.81 10^6/uL (3.85-5.65); Red Cell Distribution Width 13.6 % (12.1-15.1); White Blood Count 8.99 10^3/uL (3.29-11.43)
[2024-10-19] MEDS: dextrose 5%-lactated ringers 1,000 ML 125 ML IV (08:20)
[2024-10-19] MEDS: oxytocin 30 UNIT/500 ML BAG IV (08:20)
--- NOTE | 2024-10-19 08:52 | P.HP_ITS ---
Providers/Chief Complaint 2 Primary Care Provider: Remigio Root MD Chief Complaint: IOL History of Present Illness Sindy Pruitt is a 29 year old @ 39.4 wks by 9 wk US consistent with estimated LMP. Preg c/b child with autism, asthma, h/o chlamydia. The patient presents for an elective induction of labor. She was 3 cm dilated and 25% effaced upon arrival. She was cassie sporadically. The patient has been doing well overall. She denies any chest pains, shortness of breath, nausea, vomiting, diarrhea, constipation, leakage of fluid, vaginal bleeding, fever. Medications/Allergies Home Medications ?Medication ?Instructions ?Recorded ?Confirmed ?Last Taken ?Type 1 tab PO DAILY 12/17/1901/0710/16/24 History ferrous sulfate 325 mg (65 mg 325 mg PO DAILY #30 tabs 09/06/24 10/19/24 10/16/24 Rx iron) tablet Allergies Allergy/AdvReac Type Severity Reaction Status Date / Time ibuprofen Allergy ADR-Swelling Verified 10/16/24 23:55 of the Eye PFSH Acute 2 PFSH: Medical History Abnormal Pap smear of cervix Mild intermittent asthma Surgical History Hx of colposcopy with cervical biopsy Hx of tonsillectomy Family History Mother Thyroid disease Father Lung disease Asthma Sister Lung disease Asthma Grandfather Diabetes Social History Smoking and tobacco/nicotine status: never used tobacco/nicotine Second hand smoke exposure: No Alcohol intake: never Substance/Drug Use: never Additional social history: Son has autism Adopted: No Caregiver/support person: Yes Lives independently: Yes Marital status: Single Number of children: 0 Number of grandchildren: 0 Highest education level completed: Some College, No Degree Current occupation: Works at [employer] in [place] Reproductive History: : 3 Vitals/I&O/Wt Last Vital Signs Temp 96.4 F L 10/19/24 08:25 Pulse 70 10/19/24 08:44 BP 114/65 10/19/24 08:44 O2 Del Method Room Air 10/19/24 06:00 Weight last 48 hrs Weight 207 lb 8 oz Physical Exam 2 Narrative: General: Alert and oriented x3 Eyes: Pupils equal round and reactive to light and accommodation Mouth: Mucous membranes moist, pharynx non-erythematous Cardiac: Regular rate and rhythm without murmurs Lungs: Clear to auscultation bilaterally without wheezes, crackles or rhonchi Abdomen: Soft, non-tender, fundus consistent with gestational age Extremities: Trace edema in the bilateral lower extremities Data 10/19/24 06:40 A&P Assessment and plan (1) Supervision of normal intrauterine in multigravida: The patient is doing well overall at this time. She has been started on IV Pitocin for induction of labor. Currently her contractions with 1 unit of of Pitocin are every 3 to 4 minutes. heart tones are in the mid 130s with moderate variability and good accelerations with a category 1 tracing. She is GBS negative. All questions were answered. The patient and her are in agreement with the current plan of care. PDMP PDMP Reviewed: Not Reviewed Attestations 2 Medical Necessity Statement*: The patient will be here for greater than 2 midnights due to routine intrapartum and management of labor and delivery. Coding Level of Care Code Acute Code for Chg Fwd Diagnoses Supervision of normal intrauterine in multigravida Z34.80
[2024-10-19] MEDS: lactated ringers 1,000 ML 999 ML IV (14:27)
[2024-10-19] MEDS: ROPivacaine syringe 100 MG/50 ML SYRINGE 10 MG EPIDURAL ×2 (15:10→21:19)
--- NOTE | 2024-10-19 15:22 | ANES.PREANE2 ---
Pre-Anesthetic Assessment Height/Weight: Height 1.6 m Weight 94.12 kg Temp Pulse BP Pulse Ox O2 Del Method 96.4 F L 72 111/58 100 Room Air 10/19/24 08:25 10/19/24 15:19 10/19/24 15:19 10/19/24 15:07 10/19/24 06:00 Epidural Familial anesthetic complications: None Was Beta Lisa taken within 24 hours: N/A Was Clonidine taken within 24 hours: N/A Social No alcohol and No tobacco Exam alert, oriented x 3, clear to auscultation bilaterally and regular rate & rhythm Airway Mallampati: Class III Metabolic Morbid Obesity Anesthetic Plan ASA status: 2 Anesthesia: Regional (specify below) Risk of > 500 ml blood loss (7ml/kg in children): Yes, adequate IV access and fluids planned Medications/Allergies Home Medications ?Medication ?Instructions ?Recorded ?Confirmed ?Last Taken ?Type 1 tab PO DAILY 12/17/19 10/19/24 10/16/24 History ferrous sulfate 325 mg (65 mg 325 mg PO DAILY #30 tabs 09/06/24 10/19/24 10/16/24 Rx iron) tablet Allergies Allergy/AdvReac Type Severity Reaction Status Date / Time ibuprofen Allergy ADR-Swelling Verified 10/16/24 23:55 of the Eye Current Medications Generic Name Dose Route Start Last Admin Trade Name Freq PRN Reason Stop Dose Admin Dextrose/Lactated Ringer's 1,000 mls @ 125 mls/hr 10/19/24 06:45 10/19/24 13:45 Dextrose 5%-Lactated Ringers IV 112 mls/hr .Q8H KETTY Infusion Oxytocin 30 unit in 500 mls @ 1 mls/hr 10/19/24 08:00 10/19/24 13:45 Pitocin IV 13 milliunit/min .Q24H KETTY 13 mls/hr Titration Protocol 1 MILLIUNIT/MIN Lactated Ringer's 1,000 mls @ 999 mls/hr 10/19/24 14:14 10/19/24 14:27 Lactated Ringers IV 999 mls/hr .Q1H1M PRN Administration See label comments PFSH Anesthesia Medical History Abnormal Pap smear of cervix Mild intermittent asthma Surgical History Hx of colposcopy with cervical biopsy Hx of tonsillectomy Family History Mother Thyroid disease Father Lung disease Asthma Sister Lung disease Asthma Grandfather Diabetes Social History Smoking and tobacco/nicotine status: never used tobacco/nicotine Second hand smoke exposure: No Alcohol intake: never Substance/Drug Use: never Additional social history: Son has autism Adopted: No Caregiver/support person: Yes Lives independently: Yes Marital status: Single Number of children: 0 Number of grandchildren: 0 Highest education level completed: Some College, No Degree 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
--- NOTE | 2024-10-19 15:23 | ANES.PROC ---
Anesthesia Procedures Procedure/Date: 10/19/24 Epidural: Time Out Performed: Yes Consents Signed: Procedure Consent and NPO Consent Consent: requested by attending/covering physician, from patient, from other, risks and benefits reviewed and patient agrees to proceed Lumbar Level: L3-L4 Epidural position: sitting Epidural procedure: sterile prep of area, 1% lidocaine to numb the area, 18 g needle, negative for paresthesia passed, neg for paresthesia, test dose given, 1.5% xylocaine 1:200k epi (5 cc), 0.2% Ropivacaine bolus ml (5), placed PCEA, no systemic response, sterile dressing applied, L.U.D. no apparent complications and 0.2% Ropiavacaine @ mls/hr (10)
[2024-10-19] MEDS: dextrose 5%-lactated ringers 1,000 ML 112 ML IV (17:34)
[2024-10-19] MEDS: ondansetron 2 mg/ML SDV 2 mL 4 MG IVP (18:47)
[2024-10-20] VITALS (13 sets, daily range): BP systolic 98–125; BP diastolic 55–76; PULSE 64–93; RESP 15–16; TEMP 36.5–36.8; O2SAT 97–99
--- NOTE | 2024-10-20 00:12 | P.PCNOB_ITS ---
Delivery Note: Date of delivery: October 20, 2024 Pre-delivery diagnoses: 1. Intrauterine at 39.4 weeks gestation 2. Child with autism 3. Asthma Post-delivery diagnoses: 1. Intrauterine status post s pontaneous vaginal delivery at 39.4 weeks gestation 2. Child with autism 3. Asthma 4. Delivery of healthy female we ighing 6 pounds 12 ounces with Apgars of 9 and 9 Procedure: Spontaneous vaginal delivery Delivering Physician: Remigio Root MD Estimated blood loss (mL): 100 Findings: 1. Healthy female weighing 6 fidel nds 12 ounces with Apgars of 9 and 9 2. Intact placenta with central umbilic al cord insertion site. Pre-Delivery Course: Sindy Pruitt is a 29 year old G3 now P2 status post spontaneous vaginal delivery @ 39.4 wks by 9 wk US consistent with estimated LMP. Preg c/b child with autism, asthma, h/o chlamydia. The patient presented for an elective induction of labor on the morning of 025. She was 3 cm dilated and 25% effaced upon arrival. She was cassie sporadically. The patient was started on IV Pitocin for induction of labor. Initially she did not make any significant change but eventually her contractions became stronger so she received a laboring epidural. Change continued to be slow and by 2136 on 10/19/2024 she was 5 cm dilated and the head was well applied to the cervix with a bulging bag of fluid. In order to augment the labor process, AROM was performed at 2137 on 10/19/2024. The fluid was noted to be clear. The patient then began to make more rapid change and was complete by 2317 on 10/19/2024. Delivery: The patient began pushing at 2348 on 10/19/2024. The patient pushed well and the delivered in the OA position at 2351 on 10/19/2024. There was no nuchal cord. The right shoulder was the anterior shoulder and it delivered with steady downward pressure. The rest of the infant delivered without complication. The infant was crying immediately upon delivery. The 's mouth and nose were bulb suction by myself. The was placed on the mother's chest where the nurses were awaiting to care for her. The cord was clamped by myself and cut by the 's father. Cord blood was obtained and the cord was then drained of blood. Traction was placed on the umbilical cord and uterine massage was carried out. The placenta delivered without complication at 2355 on 10/19/2024. The placenta was noted to be intact with a central umbilical cord insertion site. The cervix was inspected and no lacerations were noted. The vaginal wall was inspected and no lacerations were noted. Estimated blood loss was 100 mL. Currently both the mother and are doing well. History History History 3 Term 2 0 Miscarriages/Ectopic 1 Living Children 2 Past Pregnancies Del. Date GA/Weeks Outcome Route Wt Inf Gender Labor Lgth Comp. Anesth esia Location 09/15/18 4 spontaneous 12/18/19 39 live - full term Vaginal 8 lb 6 oz Male 12+ hrs regional [facility] 10/19/24 39 live - full term Vaginal 6 lb 12 oz Female 16 hr regional [facility] [place] Delivery Date: 12/18/19 Last Updated by: Remigio Root MD Anemic Delivery Date: 10/19/24 Last Updated by: Remigio Root MD No tears, no complications A&P Assessment and plan (1) Normal spontaneous vaginal delivery: PDMP PDMP Reviewed: Not Reviewed Coding Level of Care Code Acute Code for Chg Fwd Diagnoses Normal spontaneous vaginal delivery O80
[2024-10-20] MEDS: HYDROcodone-acetaminophen 5-325 mg Tablet PO ×2 (03:07→15:24)
--- NOTE | 2024-10-20 09:03 | P.PN_ITS ---
Subjective 2 Subjective: The patient is doing well overall at this time. Her bleeding is decreasing well. Her pain is especially present with breast-feeding. It is crampy in nature. The Tylenol has not helped much yet. She is ambulating, voiding, and tolerating food by mouth. Vitals/I&O/Wt Last Vital Signs Temp 97.8 F 10/20/24 06:07 Pulse 81 10/20/24 06:07 Resp 15 10/20/24 06:07 BP 117/76 10/20/24 06:07 Pulse Ox 98 10/20/24 06:07 O2 Del Method Room Air 10/20/24 06:07 10/19/24 10/20/24 10/20/24 22:59 06:59 14:59 Intake Total 1576.550 / 2254.133 19.9 / 2274.033 Output Total 450 / 450 Balance 1126.550 / 1804.133 19.9 / 1824.033 Weight last 48 hrs Weight 207 lb 8 oz Physical Exam 2 Narrative: General: Alert and oriented x3 Cardiac: Regular rate and rhythm without murmurs Lungs: Clear to auscultation bilaterally without wheezes, crackles or rhonchi Abdomen: Soft, mild tenderness over uterus. The uterus is firm and 2 cm below the umbilicus. Extremities: Trace edema in the bilateral lower extremities Urinary Catheter Management: Norman Latex: Cath Placed During This Visit: yes, but has since been removed by the nurse Reason for Continuing Indwelling Catheter: Required Immobilization for Trauma or Surgery or Anesthesia Urinary Catheter Date of Insertion: 10/19/24 Urinary Catheter Time of Insertion: 16:00 Date Urinary Catheter Removed: 10/19/24 Time Urinary Catheter Discontinued: 23:25 Data 10/20/24 13:00 A&P Assessment and plan (1) Normal spontaneous vaginal delivery: The patient is doing well at this time. We will continue to monitor for signs of complications. Continue with routine care. PDMP PDMP Reviewed: Last Reviewed 10/21/24 09:54 EST by Remigio Root MD Attestations 2 Medical Necessity Statement*: The patient will be here for greater than 2 midnights due to routine intrapartum and management of labor and delivery. Coding Level of Care Code Acute Code for Chg Fwd Diagnoses Normal spontaneous vaginal delivery O80
[2024-10-20] MEDS: docusate sodium 100 mg Capsule PO ×2 (09:28→19:41)
[2024-10-20] MEDS: PRENATAL VIT NO.130/IRON/FOLIC 1 EACH TABLET PO (09:28)
[2024-10-20] MEDS: acetaminophen 325 mg Tablet 650 MG PO ×2 (09:28→19:41)
[2024-10-20 13:59] LABS: Mean Corpuscular HGB Conc 34.2 g/dL (30-55); Mean Corpuscular Hemoglobin 32.3 pg (27-33); Mean Corpuscular Volume 94.3 fl (85-98); Mean Platelet Volume 11.1 fL (7.4-10.4); Platelet Count 223 10^3/cmm (157-399); Red Cell Distribution Width 13.4 % (12.1-15.1); White Blood Count 10.23 10^3/uL (3.29-11.43)
[2024-10-20] MEDS: lanolin oint 7 gm 1 APPLIC TOPICAL (19:21)
[2024-10-21 05:05] VITALS: BP 110/60; PULSE 68; RESP 16; TEMP 36.6; TEMP 36.7; O2SAT 97
--- NOTE | 2024-10-21 08:00 | ANE.PACU2 ---
Inpatient post-anesthesia follow up: Airway intact: Yes Vital signs: Temperature 98.2 F Pulse Rate 80 Respiratory Rate 18 Blood Pressure 121/88 Pulse Oximetry 99 Oxygen Delivery Me thod Room Air Oxygen Flow Rate Fraction of Inspir ed Oxygen Hydration adequate: Yes Nausea and vomiting: Yes Pain level: 1 Mental status: Baseline Epidural Start/End: Epidural Start Date: 10/19/24 Epidural Start Time: 15:03 Epidural End Date: 10/20/24 Epidural End Time: 00:35
[2024-10-21] MEDS: PRENATAL VIT NO.130/IRON/FOLIC 1 EACH TABLET PO (08:21)
[2024-10-21] MEDS: docusate sodium 100 mg Capsule PO (08:21)
[2024-10-21] MEDS: acetaminophen 325 mg Tablet 650 MG PO (08:21)
--- NOTE | 2024-10-21 08:55 | PM.DCS ---
Discharge Providers Date of Admission: 10/19/24 06:45 Date of Discharge: October 21, 2024 Attending Provider at Admission: Remigio Root MD Attending Provider at Discharge: Remigio Root MD Primary Care Provider: Remigio Root MD Diagnoses at Discharge Discharge Diagnosis (1) Normal spontaneous vaginal delivery: Status: Acute Other Information Additional DC diagnoses/information: 1. Intrauterine status post spontaneous vaginal delivery at 39.4 weeks gestation 2. Child with autism 3. Asthma 4. Delivery of healthy female weighing 6 pounds 12 ounces with Apgars of 9 and 9 Reason for Visit Reason for Visit: IOL Brief History: Sindy Pruitt is a 29 year old G3 now P2 status post spontaneous vaginal delivery @ 39.4 wks by 9 wk US consistent with estimated LMP. Preg c/b child with autism, asthma, h/o chlamydia. The patient presented for an elective induction of labor on the morning of 10/19/2024. She was 3 cm dilated and 25% effaced upon arrival. The patient delivered a healthy female at 2351 on 10/19/2024. She had no tears and her bleeding decreased well. , the patient has not had any complications. She is ambulating, voiding, passing gas and tolerating food by mouth. Routine instructions were discussed. All questions were answered. The patient will plan to follow-up with me 6 weeks or sooner if needed. Physical Exam Narrative: General: Alert and oriented x3 Cardiac: Regular rate and rhythm without murmurs Lungs: Clear to auscultation bilaterally without wheezes, crackles or rhonchi Abdomen: Soft, mild tenderness over uterus. The uterus is firm and 2 cm below the umbilicus. Extremities: Trace edema in the bilateral lower extremities Urinary Catheter Management: Norman Latex: Cath Placed During This Visit: yes, but has since been removed by the nurse Reason for Continuing Indwelling Catheter: Required Immobilization for Trauma or Surgery or Anesthesia Urinary Catheter Date of Insertion: 10/19/24 Urinary Catheter Time of Insertion: 16:00 Date Urinary Catheter Removed: 10/19/24 Time Urinary Catheter Discontinued: 23:25 Discharge Data Studies Completed and Pending Laboratory Results WBC 10.23 10^3/uL (3.29-11.43) 10/20/24 13:00 RBC 3.50 10^6/uL (3.85-5.65) L 10/20/24 13:00 Hgb 11.30 g/dL (11.27-16.99) 10/20/24 13:00 Hct 33.0 % (36-47) L 10/20/24 13:00 MCV 94.3 fl (85-98) 10/20/24 13:00 MCH 32.3 pg (27-33) 10/20/24 13:00 MCHC 34.2 g/dL (30-55) 10/20/24 13:00 RDW 13.4 % (12.1-15.1) 10/20/24 13:00 Plt Count 223 10^3/cmm (157-399) 10/20/24 13:00 MPV 11.1 fL (7.4-10.4) H 10/20/24 13:00 Neut % (Auto) 60.0 % 10/19/24 06:40 Lymph % (Auto) 28.9 % 10/19/24 06:40 [place] % (Auto) 4.0 % 10/19/24 06:40 Eos % (Auto) 6.3 % 10/19/24 06:40 Baso % (Auto) 0.4 % 10/19/24 06:40 Neut # (Auto) 5.38 10^3/uL (1.8-7.7) 10/19/24 06:40 Lymph # (Auto) 2.6 10^3/uL (0.8-4.8) 10/19/24 06:40 [place] # (Auto) 0.4 10^3/uL (0.2-0.9) 10/19/24 06:40 Eos # (Auto) 0.6 10^3/uL (0.0-0.8) 10/19/24 06:40 Baso # (Auto) 0.0 10^3/uL (0.0-0.1) 10/19/24 06:40 Nucleated RBC % (auto) 0 % 10/19/24 06:40 Nucleated RBCs # 0.0 /100WBC 10/19/24 06:40 Blood Type O Positive 10/19/24 06:40 Rho(D) Type Rh positive 10/19/24 06:40 Antibody Screen Negative 10/19/24 06:40 Vitals Last Vital Signs Temp 98.0 F 10/21/24 05:05 Pulse 68 10/21/24 05:05 Resp 16 10/21/24 05:05 BP 110/60 10/21/24 05:05 Pulse Ox 97 10/21/24 05:05 O2 Del Method Room Air 10/21/24 05:05 Discharge Plan Discharge Patient Disposition: Home Condition: Good Prescriptions: New acetaminophen 325 mg Tablet 650 mg PO Q6H PRN (Reason: Mild pain or temp > 100.4) Qty: 60 0RF hydrocodone-acetaminophen 5-325 mg Tablet 1 tab PO Q6H PRN (Reason: Moderate To Severe Pain) Qty: 20 0RF Continued ferrous sulfate 325 mg (65 mg iron) tablet 325 mg PO DAILY Qty: 30 3RF 1 tab PO DAILY Discharge Orders: Discharge Order (Routine); Ordered 10/21/24 Ordered By: Remigio Root Referrals: Remigio Root MD [Primary Care Provider] - 12/02/24 10:00 am Discharge Diet: Regular Discharge Activity: Resume usual activity Patient Instructions: Depression (DC), Opioid Safety (DC), Preeclampsia and Eclampsia After Delivery (GEN), Hemorrhage (DC), OB Discharge Report, OB Food/Drug Interaction Guide, Opioid Safety, OB [facility], OB Vaginal Deliveries, Abnormal Bleeding Activity Restrictions/Additional Instructions: Nothing per vagina for 6 weeks. Showers are recommended instead of baths for the first 6 weeks. Discharge Attestations Time Spent in Discharge Care*: greater than 30 min Status at Discharge: Cognitive status at discharge: cognitively intact, Behavioral status at discharge: cooperative, Quality Metrics Clinical Quality Measures [ No reported AMI, CVA or VTE this stay] Coding Level of Care Code Acute Code for Chg Fwd Diagnoses Normal spontaneous vaginal delivery O80
[2024-10-21 10:30] VITALS: BP 121/88; PULSE 80; RESP 18; TEMP 36.8
[2024-10-21 11:00] VITALS: BP 121/88; PULSE 80; RESP 18; TEMP 36.8; O2SAT 99
== END 2024-10-21 11:05 | disposition home or self-care (01) | DRG 807 ==
LOC: OBGYN 09:07 → OPOB 10:34 → OBGYN 10:35
PROVIDERS: Admitting Provider Family Medicine; PCP Family Medicine; Visit Provider Family Medicine
DX: O75.89 Other specified complications of labor and delivery (principal); Z37.0 Single live birth; Z3A.39 39 weeks gestation of pregnancy; J45.20 Mild intermittent asthma, uncomplicated
CPT/HCPCS: 36415; 51702; 59409; 85025; 85027; 86850; 86900; 96374; J2405; J2590; J2795; J7120; J7121

== ENCOUNTER → 2024-12-02 12:36 | Outpatient (BNVA) | payer OTHER, MEDICAID, SELFPAY | PROVIDERS: PCP Family Medicine; Visit Provider Family Medicine | DX: Z39.2 Encounter for routine postpartum follow-up (principal) | CPT/HCPCS: 87624 ==

== ENCOUNTER 2025-08-10 18:40 | Emergency (ER) | payer MEDICAID, SELFPAY ==
[2025-08-10 18:43] VITALS: BP 122/56; PULSE 73; TEMP 36.7; O2SAT 99; BMI 30.9
--- NOTE | 2025-08-10 18:44 | XRR_ITS ---
PROCEDURE INFORMATION: Exam: XR Chest Exam date and time: 08/10/2025 6:59 PM Age: 30 years old Clinical indication: Pain; Chest pressure; Additional info: Chest pain TECHNIQUE: Imaging protocol: Radiologic exam of the chest. Views: 1 view. COMPARISON: No relevant prior studies available. FINDINGS: Lungs: Unremarkable. No consolidation. Pleural spaces: Unremarkable. No pleural effusion. No pneumothorax. Heart/Mediastinum: Unremarkable. No cardiomegaly. Bones/joints: Unremarkable. XR/XR chest 1V portable [id number] IMPRESSION: No acute findings.
--- NOTE | 2025-08-10 18:44 | ECG_ITS ---
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 Measurements Intervals [place] Rate: 77 P: 47 HI: 130 QRS: 46 QRSD: 90 T: 43 QT: 364 QTc: 413 Interpretive Statements SINUS RHYTHM INTERPRETATION BASED ON A DEFAULT AGE OF 40 YEARS No previous ECG available for comparison Electronically Signed On 08-11-2025 17:58:07 BUSSER by Erick Ramirez M.D. [id number]
[2025-08-10 19:08] LABS: Hematocrit 39.9 % (36-47); Hemoglobin 13.30 g/dL (11.27-16.99); Mean Corpuscular HGB Conc 33.3 g/dL (30-55); Mean Corpuscular Hemoglobin 27.8 pg (27-33); Mean Corpuscular Volume 83.5 fl (85-98); Nucleated Red Blood Cells % 0 %; Platelet Count 263 10^3/cmm (157-399); Red Blood Count 4.78 10^6/uL (3.85-5.65); White Blood Count 5.87 10^3/uL (3.29-11.43)
--- NOTE | 2025-08-10 19:13 | W.ED.ABDPA2 ---
Documented by User: PILO Muhammad 08/11/25 00:21 HPI - Abdominal Pain General: Chief Complaint: Abdominal Pain Stated Complaint: stabbing pain in chest, n/v cant keep food down Time Seen by Provider: 08/10/25 18:57 Source: patient Mode of arrival: ambulatory Limitations: no limitations History of Present Illness: Patient is a 30-year-old female presents to ED today with a complaint of epigastric pain. She states she first began noticing symptoms when she was with her now 9-month-old. She states she never sought medical evaluation for this because she just assumed that symptoms were related. She states starting last week she has had several episodes where she will get pain in her epigastric region. Does feel like pain radiates into chest/back. She sometimes can drink water that can be helpful. She did take an omeprazole which was helpful. She states she has had episodes of nausea and vomiting. She has not noted any fevers or jaundice. No changes in her bowel movements. She states symptoms do make her feel anxious as when is radiates to chest/back as she worries it could be something with her heart. No known cardiac history. She does not complain of shortness of breath or difficulty breathing. She clinically appears no acute distress upon arrival with stable vital signs. MD elicited complaint: abdominal pain Pertinent past history: none Onset (ago): month(s) (reports first began noticing symptoms when she was 9+ mo ago) Pain Consistency: intermittent Location: Chest and Epigastric Severity: moderate Quality: sharp and burning Radiation: none Migration to: no migration Relieving factors: other (water, PPI med) Associated Symptoms: Reports nausea and vomiting; Denies change in bowel habits, chills, constipation, diarrhea, dysuria, fever(s), hematuria, hematemesis and syncope Related Data Home Medications ?Medication ?Instructions ?Recorded ?Confirmed 1 tab PO DAILY 12/17/19 01/03/25 Previous Rx's ?Medication ?Instructions ?Recorded ferrous sulfate 325 mg (65 mg 325 mg PO DAILY #30 tabs 09/06/24 iron) tablet acetaminophen 325 mg tablet 650 mg (2 x 325 mg) PO Q6H PRN 10/21/24 Mild pain or temp > 100.4 #60 tabs ondansetron 4 mg disintegrating 4 mg PO Q8H PRN nausea and 08/10/25 tablet vomiting #14 tabs Allergies Allergy/AdvReac Type Severity Reaction Status Date / Time ibuprofen Allergy ADR-Swelling Verified 08/10/25 18:53 of the Eye Review of Systems Const: Denies: fever(s), chills, body aches, fatigue or malaise Eyes: Denies: change in vision or blurry vision Card: Reports: chest pain; Denies: palpitations, irregular heart rhythm, edema, swelling of feet/ankles, lightheadedness, syncope, pre-syncope, dyspnea on exertion, orthopnea, leg pain with exertion or acrocyanosis Resp: Denies: dyspnea, productive cough or pain on inspiration GI: Reports: abdominal pain, nausea and vomiting; Denies: hematemesis, diarrhea, constipation or change in bowel habits : Denies: flank pain, dysuria or hematuria Musc: Denies: neck pain, back pain, extremity pain, extremity swelling or joint pain Skin/Breast: Denies: rash Neuro: Denies: headache(s), numbness in extremities, weakness in extremities, sensory changes or dizziness PFSH ED PFSH: Medical History Abnormal Pap smear of cervix Mild intermittent asthma Surgical History Hx of colposcopy with cervical biopsy Hx of tonsillectomy Family History Mother Thyroid disease Father Lung disease Asthma Sister Lung disease Asthma Grandfather Diabetes Social History Smoking and tobacco/nicotine status: never used tobacco/nicotine Second hand smoke exposure: No Alcohol intake: never Substance/Drug Use: never Additional social history: Son has autism Adopted: No Caregiver/support person: Yes Lives independently: Yes Marital status: Single Number of children: 0 Number of grandchildren: 0 Highest education level completed: Some College, No Degree 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 Const: COMMON NORMALS: no acute distress, average body habitus, patient oriented x3, no limitations, healthy appearing, alert and well nourished GENERAL APPEARANCE: cooperative HENMT: COMMON NORMALS: normocephalic and atraumatic HEAD & SCALP: normocephalic and atraumatic Eye: COMMON NORMALS: no scleral icterus Neck/C-Spine: COMMON NORMALS: full ROM, no lymphadenopathy, supple and no meningeal signs Chest: COMMONS NORMALS: normal inspection of the chest and normal palpation of entire chest wall Resp: COMMON NORMALS: normal respiratory effort and clear to auscultation bilaterally AUSCULTATION: clear to auscultation bilaterally Cardio: COMMON NORMALS: regular rate and regular rhythm RATE: regular rate RHYTHM: regular rhythm GI: COMMON NORMALS: Normal to inspection, nondistended, normoactive bowel sounds present, Soft to palpation, No hepatosplenomegaly present and no masses INSPECTION: Yes normal to inspection AUSCULTATION: Yes normoactive bowel sounds PALPATION: Yes Soft to palpation, Yes Tenderness to palpation present (GI) (epigastric), No Guarding due to palpation present (GI), No Rigid due to palpation and Yes No hepatosplenomegaly present : COMMON NORMALS: Yes no CVA tenderness BLADDER/KIDNEY EXAM: Yes no CVA tenderness Back/Pelvis: COMMON NORMALS: no CVA tenderness and thoracic and lumbar spine normal to inspection Extremity: COMMON NORMALS: normal to inspection GENERAL: Yes normal exam except as noted Neuro: NAINA COMA SCALE: document GCS findings [place] coma scale eye opening: Spontaneous Naina coma scale verbal response: Orientated Naina coma scale motor response: Obey commands Naina coma scale total score: 15 COMMON NORMALS: patient oriented x3, moves all extremities, no focal motor deficits and no sensory deficits noted SENSORIUM/ORIENTATION: Yes alert MENINGEAL SIGNS: Yes no meningeal signs Skin: COMMON NORMALS: no rashes or lesions noted GENERAL SKIN EXAM: no rashes or lesions noted Course Consultations: Consultation #1: Dr. Polanco-felt patient eventually would need hepatobiliary workup given her labs; low suspicion for acute cholecystitis given her lack of white count chronicity of symptoms; stated given the findings of a porcelain gallbladder she needed to be counseled on the possibility of gallbladder/biliary cancer; stated eventually she would probably need HIDA/MRCP and follow-up with hepatobiliary Vital Signs: Vital signs: Vital Signs Temperature 98.0 F 08/10/25 18:43 Pulse Rate 74 08/10/25 22:32 Respiratory Rate 16 08/10/25 22:32 Blood Pressure 130/47 08/10/25 22:32 Pulse Oximetry 98 11/26/25 22:32 Oxygen Delivery Me thod Room Air 08/10/25 19:44 MDM - Abdominal Pain Medical Decision Making Patient is a nice 30-year-old female here with a main concern of epigastric pain that has been intermittent for at least 9 months stating she first noticed it when she was . She feels like she sometimes will get nausea and vomiting. She has reported that drinking water and taking omeprazole has helped with her symptoms. She was administered a GI cocktail here which seemed to help. Patient's vital signs are stable. Her blood work showing a normal white count. She was found to have significantly elevated liver enzymes including AST/ALT at 460/289 as well as an alk phos at 208. She has a normal T. bili and normal lipase. Hepatitis panel is unremarkable. Imaging of her gallbladder obtained showing a porcelain gallbladder suspected with wall thickening suspicious for evolving cholecystitis-recommending HIDA scan. I did speak with general surgeon Dr. Polanco who felt overall her clinical presentation did not represent acute cholecystitis and that patient probably needs hepatobiliary for further workup including rule out gallbladder cancer/cholangiocarcinoma. Did discuss eventually she would need HIDA/MRCP. I will refer her to hepatobiliary in [place]. Would like her to follow-up with her primary care provider in the meantime. She was given strict return to ED precautions which she verbalized understanding. Case also discussed with Dr. Chandler. Medical Records I reviewed the patient's medical records. Lab Data I reviewed the patient's lab results. 08/10/25 19:01 08/10/25 19:01 Labs/Radiology: Radiology Impressions Chest X-Ray 08/10/25 18:44 IMPRESSION: No acute findings. Gallbladder Ultrasound 08/10/25 19:59 IMPRESSION: Porcelain gallbladder suspected with gallbladder wall thickening to 7 mm and a positive Mendes's sign, findings potentially reflect an evolving cholecystitis, nuclear medicine HIDA scan can further characterize this. Laboratory Results WBC 5.87 10^3/uL (3.29-11.43) 08/10/25 19:01 RBC 4.78 10^6/uL (3.85-5.65) 08/10/25 19:01 Hgb 13.30 g/dL (11.27-16.99) 08/10/25 19:01 Hct 39.9 % (36-47) 08/10/25 19: MCV 83.5 fl (85-98) L 08/10/25 19: MCH 27.8 pg (27-33) 08/10/25 19: MCHC 33.3 g/dL (30-55) 08/10/25 19:01 RDW 12.1 % (12.1-15.1) 08/10/25 19:01 Plt Count 263 10^3/cmm (157-399) 08/10/25 19:01 MPV 10.0 fL (7.4-10.4) 08/10/25 19:01 Neut % (Auto) 38.4 % 08/10/25 19:01 Lymph % (Auto) 49.7 % 08/10/25 19:01 Spink % (Auto) 8.2 % 08/10/25 19: Eos % (Auto) 3.2 % 08/10/25 19:01 Baso % (Auto) 0.3 % 08/10/25 19:01 Neut # (Auto) 2.25 10^3/uL (1.8-7.7) 08/10/25 19:01 Lymph # (Auto) 2.9 10^3/uL (0.8-4.8) 08/10/25 19:01 Spink # (Auto) 0.5 10^3/uL (0.2-0.9) 08/10/25 19:01 Eos # (Auto) 0.2 10^3/uL (0.0-0.8) 08/10/25 19:01 Baso # (Auto) 0.0 10^3/uL (0.0-0.1) 08/10/25 19:01 Nucleated RBC % (auto) 0 % 08/10/25 19:01 Nucleated RBCs # 0.0 /100WBC 08/10/25 19:01 Sodium 140 mmol/L (136-145) 08/10/25 19:01 Potassium 4.2 mmol/L (3.5-5.1) 08/10/25 19:01 Chloride 103 mmol/L (98-107) 08/10/25 19:01 Carbon Dioxide 23 mmol/L (22-29) 08/10/25 19:01 Anion Gap 18.2 (5-19) 08/10/25 19: BUN 10 mg/dL (6-20) 08/10/25 19:01 Creatinine 0.4 mg/dL (0.5-0.9) L 08/10/25 19: GFR Calculation 190.1 mL/min (90-130) H 08/10/25 19:01 Glucose 103 mg/dL (65-115) 08/10/25 19: Calculated Osmolality 289 mOsm/kg (285-295) 08/10/25 19:01 Calcium 9.0 mg/dL (8.5-10.5) 08/10/25 19:01 Total Bilirubin 1.1 mg/dL (0.15-1.2) 08/10/25 19:01 AST 460 U/L (0-32) H 08/10/25 19:01 ALT 289 U/L (0-33) H 08/10/25 19:01 Alkaline Phosphatase 208 U/L (35-105) H 08/10/25 19: Troponin T Baseline < 6 ng/L (0-10) 08/10/25 19:01 Total Protein 6.9 g/dL (6.6-8.7) 08/10/25 19: Albumin 4.1 g/dL (3.5-5.2) 08/10/25 19: Globulin 2.8 g/dL (1.3-4.6) 08/10/25 19: Lipase 32 U/L (13-60) 08/10/25 19: HCG, Qual Negative (Negative) 08/10/25 19: Hepatitis A IgM Ab Non-reactive (Nonreactive) 08/10/25 19:01 Hep Bs Antigen Non-reactive (Nonreactive) 08/10/25 19:01 Hep B Core IgM Ab Non-reactive (Nonreactive) 08/10/25 19:01 Hepatitis C Antibody Non-reactive (Nonreactive) 08/10/25 19:01 All radiology interpretation(s) finalized by discharge Discharge Plan Discharge Patient Disposition: Home Clinical Impression: Porcelain gallbladder, Elevated liver enzymes Condition: Stable Prescriptions: New ondansetron 4 mg tablet,disintegrating 4 mg PO Q8H PRN (Reason: nausea and vomiting) Qty: 14 0RF No Action ferrous sulfate 325 mg (65 mg iron) tablet 325 mg PO DAILY Qty: 30 3RF 1 tab PO DAILY acetaminophen 325 mg Tablet 650 mg PO Q6H PRN (Reason: Mild pain or temp > 100.4) Qty: 60 0RF Discharge Orders: Discharge ED (Routine); Ordered 08/10/25 Ordered By: Agustina Bueno Referrals: Remigio Root MD [Primary Care Provider, [facility]] Patient Instructions: Abdominal Pain (ED), Patient Portal & Radha Instructions Activity Restrictions/Additional Instructions: As we discussed, your blood work showed a normal white count. You did have elevations to your liver enzymes including AST, ALT, alkaline phosphatase. Ultrasound of your gallbladder today showing a porcelain gallbladder and a thickened gallbladder wall. I did discuss your case with our general surgeon Dr. Polanco who did not feel you had an acute cholecystitis (new infected gallbladder that needs removed emergently). He felt you needed to see a hepatobiliary specialist to make sure you do not have any malignancy affecting your gallbladder or biliary tree. He stated you would also need testing which could include a HIDA scan or MRCP. I have placed case management referral today but I am not sure how long this will take to get an appointment. I would like you to follow-up with your primary care provider in the meantime. We did discuss signs and symptoms that should prompt you to return to the emergency department including worsening or uncontrollable abdominal pain, yellowing to your skin or eyes, frequent episodes of vomiting, fevers, generally feeling worse or unwell, pale or white stools, extremely dark urine, or any other concerns you may have. Print Language: Bahamian Coding Level of Care Code ED Aurist for Chg Fwd Documented by User: Carlos Chandler DO 08/12/25 02:41 HPI - Abdominal Pain General: Chief Complaint: Abdominal Pain Stated Complaint: stabbing pain in chest, n/v cant keep food down Time Seen by Provider: 08/10/25 18:57 Related Data Home Medications ?Medication ?Instructions ?Recorded ?Confirmed 1 tab PO DAILY 12/17/19 01/03/25 Previous Rx's ?Medication ?Instructions ?Recorded ferrous sulfate 325 mg (65 mg 325 mg PO DAILY #30 tabs 09/06/24 iron) tablet acetaminophen 325 mg tablet 650 mg (2 x 325 mg) PO Q6H PRN 10/21/24 Mild pain or temp > 100.4 #60 tabs ondansetron 4 mg disintegrating 4 mg PO Q8H PRN nausea and 08/10/25 tablet vomiting #14 tabs Allergies Allergy/AdvReac Type Severity Reaction Status Date / Time ibuprofen Allergy ADR-Swelling Verified 08/10/25 18:53 of the Eye [facility] ED PFSH: Medical History Abnormal Pap smear of cervix Mild intermittent asthma Surgical History Hx of colposcopy with cervical biopsy Hx of tonsillectomy Family History Mother Thyroid disease Father Lung disease Asthma Sister Lung disease Asthma Grandfather Diabetes Social History Smoking and tobacco/nicotine status: never used tobacco/nicotine Second hand smoke exposure: No Alcohol intake: never Substance/Drug Use: never Additional social history: Son has autism Adopted: No Caregiver/support person: Yes Lives independently: Yes Marital status: Single Number of children: 0 Number of grandchildren: 0 Highest education level completed: Some College, No Degree 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 She feels like she sometimes will get nausea and vomiting. She has reported that drinking water and taking omeprazole has helped with her symptoms. She was administered a GI cocktail here which seemed to help. Patient's vital signs are stable. Her blood work showing a normal white count. She was found to have significantly elevated liver enzymes including AST/ALT at 460/289 as well as an alk phos at 208. She has a normal T. bili and normal lipase. Hepatitis panel is unremarkable. Imaging of her gallbladder obtained showing a porcelain gallbladder suspected with wall thickening suspicious for evolving cholecystitis-recommending HIDA scan. I did speak with general surgeon Dr. Polanco who felt overall her clinical presentation did not represent acute cholecystitis and that patient probably needs hepatobiliary for further workup including rule out gallbladder cancer/cholangiocarcinoma. Did discuss eventually she would need HIDA/MRCP. I will refer her to hepatobiliary in [place]. Would like her to follow-up with her primary care provider in the meantime. She was given strict return to ED precautions which she verbalized understanding. Case also discussed with Dr. Chandler. Chart reviewed and patient discussed with midlevel. Agree with assessment and plan. Lab Data 08/10/25 19:01 08/10/25 19:01 Labs/Radiology: Radiology Impressions Chest X-Ray 08/10/25 18:44 IMPRESSION: No acute findings. Gallbladder Ultrasound 08/10/25 19:59 IMPRESSION: Porcelain gallbladder suspected with gallbladder wall thickening to 7 mm and a positive Mendes's sign, findings potentially reflect an evolving cholecystitis, nuclear medicine HIDA scan can further characterize this. Laboratory Results WBC 5.87 10^3/uL (3.29-11.43) 08/10/25 19:01 RBC 4.78 10^6/uL (3.85-5.65) 08/10/25 19:01 Hgb 13.30 g/dL (11.27-16.99) 08/10/25 19:01 Hct 39.9 % (36-47) 08/10/25 19:01 MCV 83.5 fl (85-98) L 08/10/25 19:01 MCH 27.8 pg (27-33) 08/10/25 19:01 MCHC 33.3 g/dL (30-55) 08/10/25 19:01 RDW 12.1 % (12.1-15.1) 08/10/25 19:01 Plt Count 263 10^3/cmm (157-399) 08/10/25 19:01 MPV 10.0 fL (7.4-10.4) 08/10/25 19:01 Neut % (Auto) 38.4 % 08/10/25 19:01 Lymph % (Auto) 49.7 % 08/10/25 19:01 [place]ink % (Auto) 8.2 % 08/10/25 19:01 Eos % (Auto) 3.2 % 08/10/25 19:01 Baso % (Auto) 0.3 % 08/10/25 19:01 Neut # (Auto) 2.25 10^3/uL (1.8-7.7) 08/10/25 19:01 Lymph # (Auto) 2.9 10^3/uL (0.8-4.8) 08/10/25 19:01 [place]ink # (Auto) 0.5 10^3/uL (0.2-0.9) 08/10/25 19:01 Eos # (Auto) 0.2 10^3/uL (0.0-0.8) 08/10/25 19:01 Baso # (Auto) 0.0 10^3/uL (0.0-0.1) 08/10/25 19:01 Nucleated RBC % (auto) 0 % 08/10/25 19:01 Nucleated RBCs # 0.0 /100WBC 08/10/25 19:01 Sodium 140 mmol/L (136-145) 08/10/25 19:01 Potassium 4.2 mmol/L (3.5-5.1) 08/10/25 19:01 Chloride 103 mmol/L (98-107) 08/10/25 19:01 Carbon Dioxide 23 mmol/L (22-29) 08/10/25 19:01 Anion Gap 18.2 (5-19) 08/10/25 19:01 BUN 10 mg/dL (6-20) 08/10/25 19:01 Creatinine 0.4 mg/dL (0.5-0.9) L 08/10/25 19:01 GFR Calculation 190.1 mL/min (90-130) H 08/10/25 19:01 Glucose 103 mg/dL (65-115) 08/10/25 19:01 Calculated Osmolality 289 mOsm/kg (285-295) 08/10/25 19:01 Calcium 9.0 mg/dL (8.5-10.5) 08/10/25 19:01 Total Bilirubin 1.1 mg/dL (0.15-1.2) 08/10/25 19:01 AST 460 U/L (0-32) H 08/10/25 19:01 ALT 289 U/L (0-33) H 08/10/25 19:01 Alkaline Phosphatase 208 U/L (35-105) H 08/10/25 19:01 Troponin T Baseline < 6 ng/L (0-10) 08/10/25 19:01 Total Protein 6.9 g/dL (6.6-8.7) 08/10/25 19:01 Albumin 4.1 g/dL (3.5-5.2) 08/10/25 19: Globulin 2.8 g/dL (1.3-4.6) 08/10/25 19:01 Lipase 32 U/L (13-60) 08/10/25 19:01 HCG, Qual Negative (Negative) 08/10/25 19:01 Hepatitis A IgM Ab Non-reactive (Nonreactive) 08/10/25 19:01 Hep Bs Antigen Non-reactive (Nonreactive) 08/10/25 19:01 Hep B Core IgM Ab Non-reactive (Nonreactive) 08/10/25 19:01 Hepatitis C Antibody Non-reactive (Nonreactive) 08/10/25 19:01 Discharge Plan Discharge Patient Disposition: Home Clinical Impression: Porcelain gallbladder, Elevated liver enzymes Condition: Stable Prescriptions: New ondansetron 4 mg tablet,disintegrating 4 mg PO Q8H PRN (Reason: nausea and vomiting) Qty: 14 0RF No Action ferrous sulfate 325 mg (65 mg iron) tablet 325 mg PO DAILY Qty: 30 3RF 1 tab PO DAILY acetaminophen 325 mg Tablet 650 mg PO Q6H PRN (Reason: Mild pain or temp > 100.4) Qty: 60 0RF Discharge Orders: Discharge ED (Routine); Ordered 08/10/25 Ordered By: Agustina Bueno Referrals: Remigio Root MD [Primary Care Provider, Family Practice] Patient Instructions: Abdominal Pain (ED), Patient Portal & Radha Instructions Activity Restrictions/Additional Instructions: As we discussed, your blood work showed a normal white count. You did have elevations to your liver enzymes including AST, ALT, alkaline phosphatase. Ultrasound of your gallbladder today showing a porcelain gallbladder and a thickened gallbladder wall. I did discuss your case with our general surgeon Dr. Polanco who did not feel you had an acute cholecystitis (new infected gallbladder that needs removed emergently). He felt you needed to see a hepatobiliary specialist to make sure you do not have any malignancy affecting your gallbladder or biliary tree. He stated you would also need testing which could include a HIDA scan or MRCP. I have placed case management referral today but I am not sure how long this will take to get an appointment. I would like you to follow-up with your primary care provider in the meantime. We did discuss signs and symptoms that should prompt you to return to the emergency department including worsening or uncontrollable abdominal pain, yellowing to your skin or eyes, frequent episodes of vomiting, fevers, generally feeling worse or unwell, pale or white stools, extremely dark urine, or any other concerns you may have. Print Language: Bahamian Coding Level of Care Code ED Aurist for Estevan Meza
[2025-08-10 19:31] LABS: HCG, Serum Qual Negative (Negative)
[2025-08-10 19:43] LABS: Troponin(5th) Baseline < 6 ng/L (0-10)
[2025-08-10 19:44] VITALS: BP 112/73; PULSE 77; O2SAT 100
[2025-08-10 19:45] LABS: Alanine Aminotransferase 289 U/L (0-33); Albumin Level 4.1 g/dL (3.5-5.2); Alkaline Phosphatase 208 U/L (35-105); Anion Gap 18.2 (5-19); Aspartate Amino Transferase 460 U/L (0-32); Blood Urea Nitrogen 10 mg/dL (6-20); Calcium 9.0 mg/dL (8.5-10.5); Carbon Dioxide 23 mmol/L (22-29); Chloride 103 mmol/L (98-107); Globulin 2.8 g/dL (1.3-4.6); Glucose 103 mg/dL (65-115); Lipase 32 U/L (13-60); Osmolality Calculated 289 mOsm/kg (285-295); Potassium 4.2 mmol/L (3.5-5.1); Sodium 140 mmol/L (136-145); Total Protein 6.9 g/dL (6.6-8.7)
[2025-08-10] MEDS: lidocaine 2% viscous 15 ML, aluminum-mag hydrox-simethicon 30 ML, sucralfate oral liq 1 GM PO (19:45)
--- NOTE | 2025-08-10 19:59 | USR_ITS ---
PROCEDURE INFORMATION: Exam: US Abdomen, Limited; Right Upper Quadrant Exam date and time: 08/10/2025 8:53 PM Age: 30 years old Clinical indication: Abdominal pain; Epigastric; Additional info: Epigastric pain; Elevated lfts TECHNIQUE: Imaging protocol: Real time ultrasound of the abdomen with image documentation. Limited exam focused on the right upper quadrant. COMPARISON: US OB >= 14 weeks fetus [id number] 06/04/2024 1:02 PM FINDINGS: Liver: Normal. No masses. Gallbladder: Porcelain gallbladder suspected with gallbladder wall thickening to 7 mm and a positive Mendes's sign, findings potentially reflect an evolving cholecystitis, nuclear medicine HIDA scan can further characterize this. Biliary ducts: Normal. No stones. No dilation. Pancreas: Visualized pancreas is unremarkable. Right kidney: Normal. No mass. No hydronephrosis. US/US gall bladder [id number] IMPRESSION: Porcelain gallbladder suspected with gallbladder wall thickening to 7 mm and a positive Mendes's sign, findings potentially reflect an evolving cholecystitis, nuclear medicine HIDA scan can further characterize this.
[2025-08-10 22:32] VITALS: BP 130/47; PULSE 74; RESP 16; O2SAT 98
[2025-08-10 22:43] LABS: Hepatitis A Antibody IgM Non-Reactive (Nonreactive); Hepatitis B Surface Antigen Non-Reactive (Nonreactive)
== END 2025-08-10 22:33 | disposition home or self-care (01) ==
PROVIDERS: Emergency Provider Physician Assistant; PCP Family Medicine
DX: K82.8 Other specified diseases of gallbladder (principal); R74.01 Elevation of levels of liver transaminase levels
CPT/HCPCS: 36415; 71045; 76705; 80053; 80074; 83690; 84484; 84703; 85025; 93005; 99285; J9999; Q0162

== ENCOUNTER 2025-08-11 18:36 | Emergency (ER) | payer MEDICAID, SELFPAY ==
[2025-08-11] VITALS (7 sets, daily range): BP systolic 100–118; BP diastolic 60–73; PULSE 68–96; RESP 14–19; TEMP 36.5–36.7; O2SAT 92–98
--- NOTE | 2025-08-11 18:42 | W.ED.ABDPA2 ---
Documented by User: PILO Muhammad 08/11/25 23:02 HPI - Abdominal Pain General: Chief Complaint: Abdominal Pain Stated Complaint: abdominal pain Time Seen by Provider: 08/11/25 18:42 Source: patient Mode of arrival: ambulatory Limitations: no limitations History of Present Illness: Patient is a nice 30-year-old female who returns to the emergency department for complaints of abdominal pain. I saw patient yesterday in the emergency department. History at that visit was epigastric abdominal pain intermittently for several months. She was found to have elevated liver enzymes and a porcelain gallbladder. Case was discussed with Dr. Polanco who felt this was more chronic and recommended follow-up with hepatobiliary. Patient states she continued to be intermittently uncomfortable throughout the night. She was able to eat a small amount of breakfast. She states she then ate a Thanksgiving dinner and began developing severe right upper quadrant abdominal pain with nausea. Denies fevers but has felt chillish . She also has noticed dark urine today. No back/chest pain. MD elicited complaint: abdominal pain Pertinent past history: none Onset (ago): month(s) (worse over the past week or so) Pain Consistency: intermittent Location: RUQ Severity: severe Radiation: none Migration to: no migration Exacerbating factors: eating (today) Relieving factors: other (has attempted drinking water and PPI) Associated Symptoms: Reports chills and nausea; Denies change in bowel habits, constipation, diarrhea, dysuria, fever(s), hematuria and vomiting Related Data Home Medications ?Medication ?Instructions ?Recorded ?Confirmed 1 tab PO DAILY 12/17/19 01/03/25 Previous Rx's ?Medication ?Instructions ?Recorded ferrous sulfate 325 mg (65 mg 325 mg PO DAILY #30 tabs 09/06/24 iron) tablet acetaminophen 325 mg tablet 650 mg (2 x 325 mg) PO Q6H PRN 10/21/24 Mild pain or temp > 100.4 #60 tabs ondansetron 4 mg disintegrating 4 mg PO Q8H PRN nausea and 08/10/25 tablet vomiting #14 tabs Allergies Allergy/AdvReac Type Severity Reaction Status Date / Time ibuprofen Allergy ADR-Swelling Verified 08/10/25 18:53 of the Eye Review of Systems Const: Reports: chills; Denies: fever(s), body aches, fatigue or malaise Card: Denies: chest pain Resp: Denies: dyspnea GI: Reports: abdominal pain and nausea; Denies: vomiting, diarrhea, constipation or change in bowel habits : Denies: flank pain, dysuria or hematuria Musc: Denies: neck pain, back pain, extremity pain or joint swelling Skin/Breast: Denies: rash Neuro: Denies: headache(s), numbness in extremities, weakness in extremities, sensory changes or dizziness PFSH ED PFSH: Medical History Abnormal Pap smear of cervix Mild intermittent asthma Surgical History Hx of colposcopy with cervical biopsy Hx of tonsillectomy Family History Mother Thyroid disease Father Lung disease Asthma Sister Lung disease Asthma Grandfather Diabetes Social History Smoking and tobacco/nicotine status: never used tobacco/nicotine Second hand smoke exposure: No Alcohol intake: never Substance/Drug Use: never Additional social history: Son has autism Adopted: No Caregiver/support person: Yes Lives independently: Yes Marital status: Single Number of children: 0 Number of grandchildren: 0 Highest education level completed: Some College, No Degree 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 Const: COMMON NORMALS: no acute distress, average body habitus, patient oriented x3, no limitations, healthy appearing, alert and well nourished GENERAL APPEARANCE: cooperative and anxious Eye: COMMON NORMALS: no scleral icterus Resp: COMMON NORMALS: normal respiratory effort and clear to auscultation bilaterally AUSCULTATION: clear to auscultation bilaterally Cardio: COMMON NORMALS: regular rate and regular rhythm RATE: regular rate RHYTHM: regular rhythm GI: COMMON NORMALS: Normal to inspection, nondistended, normoactive bowel sounds present, Soft to palpation, No hepatosplenomegaly present and no masses INSPECTION: Yes normal to inspection AUSCULTATION: Yes normoactive bowel sounds PALPATION: Yes Soft to palpation, Yes Tenderness to palpation present (GI) Details: RUQ, No Guarding due to palpation present (GI), No Rigid due to palpation and Yes No hepatosplenomegaly present : COMMON NORMALS: Yes no CVA tenderness BLADDER/KIDNEY EXAM: Yes no CVA tenderness Back/Pelvis: COMMON NORMALS: no CVA tenderness and thoracic and lumbar spine normal to inspection Extremity: COMMON NORMALS: normal to inspection Neuro: COMMON NORMALS: patient oriented x3 SENSORIUM/ORIENTATION: Yes alert Skin: COMMON NORMALS: no rashes or lesions noted GENERAL SKIN EXAM: no rashes or lesions noted Course Consultations: Consultation #1: Dr. Ott-due to her tbili now being elevated- he is recommending transfer for MRCP/ERCP Consultation #2: Dr. Yu-hospitalist for [facility]-accepting transfer Vital Signs: Vital signs: Vital Signs Temperature 98.0 F 08/11/25 23:27 Pulse Rate 96 08/11/25 23:27 Respiratory Rate 17 08/11/25 23:27 Blood Pressure 118/73 08/11/25 23:27 Pulse Oximetry 97 08/11/25 23:27 Oxygen Delivery Me thod Room Air 08/11/25 18:52 MDM - Abdominal Pain Medical Decision Making Patient is a nice 30-year-old female who returns to the emergency department for complaints of abdominal pain. I saw patient yesterday in the emergency department with a complaint of chronic/intermittent epigastric abdominal pain. She was found to have elevated liver enzymes and a porcelain gallbladder on ultrasound. Case was discussed with Dr. Polanco who felt this was more chronic and concerned regarding US findings that this could represent gallbladder cancer or a cholangiocarcinoma and recommended follow-up with hepatobiliary. Patient states she continued to be intermittently uncomfortable throughout the night. She was able to eat a small amount of breakfast. She states she then ate a Thanksgiving dinner and began developing severe right upper quadrant abdominal pain with nausea. She also has noticed dark urine today. She was found to have continued elevations to AST/ALT/alk phos but now she has an elevated tbili at 3.1. Still no white count. She is not tachycardic or febrile. Spoke to Dr. Ott again who is recommending transfer for MRCP/ERCP given her elevated tbili and concern for obstruction. Dr. Chandler also aware of patient and agrees with need to transfer. I spoke to [facility] hospitalist, Dr. Yu who accepts transfer. Differential Diagnosis Likely abdominal pain and pancreatitis Medical Records I reviewed the patient's medical records. Lab Data I reviewed the patient's lab results. 08/11/25 18:55 08/11/25 18:55 Labs/Radiology: Laboratory Results WBC 6.60 10^3/uL (3.29-11.43) 08/11/25 18:55 RBC 4.79 10^6/uL (3.85-5.65) 08/11/25 18:55 Hgb 13.40 g/dL (11.27-16.99) 08/11/25 18:55 Hct 40.4 % (36-47) 08/11/25 18:55 MCV 84.3 fl (85-98) L 08/11/25 18:55 MCH 28.0 pg (27-33) 08/11/25 18:55 MCHC 33.2 g/dL (30-55) 08/11/25 18:55 RDW 12.2 % (12.1-15.1) 08/11/25 18:55 Plt Count 285 10^3/cmm (157-399) 08/11/25 18:55 MPV 10.1 fL (7.4-10.4) 08/11/25 18:55 Neut % (Auto) 45.8 % 08/11/25 18:55 Lymph % (Auto) 42.3 % 08/11/25 18:55 [place] % (Auto) 7.3 % 08/11/25 18:55 Eos % (Auto) 3.8 % 08/11/25 18:55 Baso % (Auto) 0.6 % 08/11/25 18:55 Neut # (Auto) 3.03 10^3/uL (1.8-7.7) 08/11/25 18:55 Lymph # (Auto) 2.8 10^3/uL (0.8-4.8) 08/11/25 18:55 [place] # (Auto) 0.5 10^3/uL (0.2-0.9) 08/11/25 18:55 Eos # (Auto) 0.3 10^3/uL (0.0-0.8) 08/11/25 18:55 Baso # (Auto) 0.0 10^3/uL (0.0-0.1) 08/11/25 18:55 Nucleated RBC % (auto) 0 % 08/11/25 18:55 Nucleated RBCs # 0.0 /100WBC 08/11/25 18:55 Sodium 140 mmol/L (136-145) 08/11/25 18:55 Potassium 4.0 mmol/L (3.5-5.1) 08/11/25 18:55 Chloride 102 mmol/L (98-107) 08/11/25 18:55 Carbon Dioxide 27 mmol/L (22-29) 08/11/25 18:55 Anion Gap 15.0 (5-19) 08/11/25 18:55 BUN 10 mg/dL (6-20) 08/11/25 18:55 Creatinine 0.5 mg/dL (0.5-0.9) 08/11/25 18:55 GFR Calculation 146.9 mL/min (90-130) H 08/11/25 18:55 Glucose 108 mg/dL (65-115) 08/11/25 18:55 Calculated Osmolality 290 mOsm/kg (285-295) 08/11/25 18:55 Calcium 9.3 mg/dL (8.5-10.5) 08/11/25 18:55 Total Bilirubin 3.1 mg/dL (0.15-1.2) H 08/11/25 18:55 AST 282 U/L (0-32) H 08/11/25 18:55 ALT 291 U/L (0-33) H 08/11/25 18:55 Alkaline Phosphatase 291 U/L (35-105) H 08/11/25 18:55 Total Protein 7.4 g/dL (6.6-8.7) 08/11/25 18:55 Albumin 4.2 g/dL (3.5-5.2) 08/11/25 18:55 Globulin 3.2 g/dL (1.3-4.6) 08/11/25 18:55 Lipase 30 U/L (13-60) 08/11/25 18:55 Urine Color Dark yellow (Yellow) A 08/11/25 19:57 Urine Appearance Clear (CLEAR) 08/11/25 19:57 Urine pH 5.5 (5-7) 08/11/25 19:57 Ur Specific [place] 1.032 (1.005-1.030) H 08/11/25 19:57 Urine Protein Trace (Negative) A 08/11/25 19:57 Urine Glucose (UA) Negative (Normal) 08/11/25 19:57 Urine Ketones 1+ (Negative) H 08/11/25 19:57 Urine Blood Negative (Negative) 08/11/25 19:57 Urine Nitrate Positive (Negative) A 08/11/25 19:57 Urine Bilirubin 2+ (Negative) H 08/11/25 19:57 Urine Urobilinogen 1.0 mg/dL (Negative) 08/11/25 19:57 Ur Leukocyte Esterase Trace (Negative) A 08/11/25 19:57 Urine RBC 3-5 /hpf (0-2) 08/11/25 19:57 Urine WBC 0-5 /hpf (0-5) 08/11/25 19:57 Ur Squamous Epith Cells 6-10 /hpf (0-5) 08/11/25 19:57 Amorphous Sediment Not Reportable 08/11/25 19:57 Urine Bacteria None seen /hpf (NONE) 08/11/25 19:57 Hyaline Casts 2.87 /lpf 08/11/25 19:57 No radiology studies performed this visit Discharge Plan Discharge Patient Disposition: Xfer Short-Term Hosp Clinical Impression: Porcelain gallbladder, Calculous cholecystitis with obstruction Condition: Stable Referrals: Remigio Root MD [Primary Care Provider, Family Practice] Patient Instructions: Abdominal Pain (ED) Print Language: Indonesian Coding Level of Care Code ED Product Safety Consultant for Chg Fwd Documented by User: Carlos Chandler DO 08/12/25 02:42 HPI - Abdominal Pain General: Chief Complaint: Abdominal Pain Stated Complaint: abdominal pain Time Seen by Provider: 08/11/25 18:42 Related Data Home Medications ?Medication ?Instructions ?Recorded ?Confirmed 1 tab PO DAILY 12/17/19 01/03/25 Previous Rx's ?Medication ?Instructions ?Recorded ferrous sulfate 325 mg (65 mg 325 mg PO DAILY #30 tabs 09/06/24 iron) tablet acetaminophen 325 mg tablet 650 mg (2 x 325 mg) PO Q6H PRN 10/21/24 Mild pain or temp > 100.4 #60 tabs ondansetron 4 mg disintegrating 4 mg PO Q8H PRN nausea and 08/10/25 tablet vomiting #14 tabs Allergies Allergy/AdvReac Type Severity Reaction Status Date / Time ibuprofen Allergy ADR-Swelling Verified 08/10/25 18:53 of the Eye [facility] ED PFSH: Medical History Abnormal Pap smear of cervix Mild intermittent asthma Surgical History Hx of colposcopy with cervical biopsy Hx of tonsillectomy Family History Mother Thyroid disease Father Lung disease Asthma Sister Lung disease Asthma Grandfather Diabetes Social History Smoking and tobacco/nicotine status: never used tobacco/nicotine Second hand smoke exposure: No Alcohol intake: never Substance/Drug Use: never Additional social history: Son has autism Adopted: No Caregiver/support person: Yes Lives independently: Yes Marital status: Single Number of children: 0 Number of grandchildren: 0 Highest education level completed: Some College, No Degree Current occupation: Works at [employer] in [employer] Vital Signs: Vital signs: Vital Signs Temperature 98.0 F 08/11/25 23:27 Pulse Rate 96 08/11/25 23:27 Respiratory Rate 17 08/11/25 23:27 Blood Pressure 118/73 08/11/25 23:27 Pulse Oximetry 97 08/11/25 23:27 Oxygen Delivery Me thod Room Air 08/11/25 18:52 MDM - Abdominal Pain Medical Decision Making Patient is a nice 30-year-old female who returns to the emergency department for complaints of abdominal pain. I saw patient yesterday in the emergency department with a complaint of chronic/intermittent epigastric abdominal pain. She was found to have elevated liver enzymes and a porcelain gallbladder on ultrasound. Case was discussed with Dr. Polanco who felt this was more chronic and concerned regarding US findings that this could represent gallbladder cancer or a cholangiocarcinoma and recommended follow-up with hepatobiliary. Patient states she continued to be intermittently uncomfortable throughout the night. She was able to eat a small amount of breakfast. She states she then ate a Thanksgiving dinner and began developing severe right upper quadrant abdominal pain with nausea. She also has noticed dark urine today. She was found to have continued elevations to AST/ALT/alk phos but now she has an elevated tbili at 3.1. Still no white count. She is not tachycardic or febrile. Spoke to Dr. Ott again who is recommending transfer for MRCP/ERCP given her elevated tbili and concern for obstruction. Dr. Chandler also aware of patient and agrees with need to transfer. I spoke to [facility] hospitalist, Dr. Yu who accepts transfer. Chart reviewed and patient discussed with midlevel. Agree with assessment and plan. Lab Data 08/11/25 18:55 08/11/25 18:55 Labs/Radiology: Laboratory Results WBC 6.60 10^3/uL (3.29-11.43) 08/11/25 18:55 RBC 4.79 10^6/uL (3.85-5.65) 08/11/25 18:55 Hgb 13.40 g/dL (11.27-16.99) 08/11/25 18:55 Hct 40.4 % (36-47) 08/11/25 18:55 MCV 84.3 fl (85-98) L 08/11/25 18:55 MCH 28.0 pg (27-33) 08/11/25 18:55 MCHC 33.2 g/dL (30-55) 08/11/25 18:55 RDW 12.2 % (12.1-15.1) 08/11/25 18:55 Plt Count 285 10^3/cmm (157-399) 08/11/25 18:55 MPV 10.1 fL (7.4-10.4) 08/11/25 18:55 Neut % (Auto) 45.8 % 08/11/25 18:55 Lymph % (Auto) 42.3 % 08/11/25 18:55 [place] % (Auto) 7.3 % 08/11/25 18:55 Eos % (Auto) 3.8 % 08/11/25 18:55 Baso % (Auto) 0.6 % 08/11/25 18:55 Neut # (Auto) 3.03 10^3/uL (1.8-7.7) 08/11/25 18:55 Lymph # (Auto) 2.8 10^3/uL (0.8-4.8) 08/11/25 18:55 [place] # (Auto) 0.5 10^3/uL (0.2-0.9) 08/11/25 18:55 Eos # (Auto) 0.3 10^3/uL (0.0-0.8) 08/11/25 18:55 Baso # (Auto) 0.0 10^3/uL (0.0-0.1) 08/11/25 18:55 Nucleated RBC % (auto) 0 % 08/11/25 18:55 Nucleated RBCs # 0.0 /100WBC 08/11/25 18:55 Sodium 140 mmol/L (136-145) 08/11/25 18:55 Potassium 4.0 mmol/L (3.5-5.1) 08/11/25 18:55 Chloride 102 mmol/L (98-107) 08/11/25 18:55 Carbon Dioxide 27 mmol/L (22-29) 08/11/25 18:55 Anion Gap 15.0 (5-19) 08/11/25 18:55 BUN 10 mg/dL (6-20) 08/11/25 18:55 Creatinine 0.5 mg/dL (0.5-0.9) 08/11/25 18:55 GFR Calculation 146.9 mL/min (90-130) H 08/11/25 18:55 Glucose 108 mg/dL (65-115) 08/11/25 18:55 Calculated Osmolality 290 mOsm/kg (285-295) 08/11/25 18:55 Calcium 9.3 mg/dL (8.5-10.5) 08/11/25 18:55 Total Bilirubin 3.1 mg/dL (0.15-1.2) H 08/11/25 18:55 AST 282 U/L (0-32) H 08/11/25 18:55 ALT 291 U/L (0-33) H 08/11/25 18:55 Alkaline Phosphatase 291 U/L (35-105) H 08/11/25 18:55 Total Protein 7.4 g/dL (6.6-8.7) 08/11/25 18:55 Albumin 4.2 g/dL (3.5-5.2) 08/11/25 18:55 Globulin 3.2 g/dL (1.3-4.6) 08/11/25 18:55 Lipase 30 U/L (13-60) 08/11/25 18:55 Urine Color Dark yellow (Yellow) A 08/11/25 19:57 Urine Appearance Clear (CLEAR) 08/11/25 19:57 Urine pH 5.5 (5-7) 08/11/25 19:57 Ur Specific [place] 1.032 (1.005-1.030) H 08/11/25 19:57 Urine Protein Trace (Negative) A 08/11/25 19:57 Urine Glucose (UA) Negative (Normal) 08/11/25 19:57 Urine Ketones 1+ (Negative) H 08/11/25 19:57 Urine Blood Negative (Negative) 08/11/25 19:57 Urine Nitrate Positive (Negative) A 08/11/25 19:57 Urine Bilirubin 2+ (Negative) H 08/11/25 19:57 Urine Urobilinogen 1.0 mg/dL (Negative) 08/11/25 19:57 Ur Leukocyte Esterase Trace (Negative) A 08/11/25 19:57 Urine RBC 3-5 /hpf (0-2) 08/11/25 19:57 Urine WBC 0-5 /hpf (0-5) 08/11/25 19:57 Ur Squamous Epith Cells 6-10 /hpf (0-5) 08/11/25 19:57 Amorphous Sediment Not Reportable 08/11/25 19:57 Urine Bacteria None seen /hpf (NONE) 08/11/25 19:57 Hyaline Casts 2.87 /lpf 08/11/25 19:57 Discharge Plan Discharge Patient Disposition: Xfer Short-Term Hosp Clinical Impression: Porcelain gallbladder, Calculous cholecystitis with obstruction Condition: Stable Referrals: Remigio Root MD [Primary Care Provider, Family Practice] Patient Instructions: Abdominal Pain (ED) Print Language: Indonesian Coding Level of Care Code ED Product Safety Consultant for Estevan Meza
[2025-08-11 19:07] LABS: Hematocrit 40.4 % (36-47); Hemoglobin 13.40 g/dL (11.27-16.99); Mean Corpuscular HGB Conc 33.2 g/dL (30-55); Mean Corpuscular Hemoglobin 28.0 pg (27-33); Mean Corpuscular Volume 84.3 fl (85-98); Nucleated Red Blood Cells % 0 %; Platelet Count 285 10^3/cmm (157-399); Red Blood Count 4.79 10^6/uL (3.85-5.65); White Blood Count 6.60 10^3/uL (3.29-11.43)
[2025-08-11] MEDS: ondansetron 2 mg/ML SDV 2 mL 4 MG IVP (19:16)
[2025-08-11] MEDS: morphine 4 mg/mL SDV 1 mL IVP (19:16)
[2025-08-11 19:49] LABS: Alanine Aminotransferase 291 U/L (0-33); Albumin Level 4.2 g/dL (3.5-5.2); Alkaline Phosphatase 291 U/L (35-105); Anion Gap 15.0 (5-19); Aspartate Amino Transferase 282 U/L (0-32); Blood Urea Nitrogen 10 mg/dL (6-20); Calcium 9.3 mg/dL (8.5-10.5); Carbon Dioxide 27 mmol/L (22-29); Chloride 102 mmol/L (98-107); Globulin 3.2 g/dL (1.3-4.6); Glucose 108 mg/dL (65-115); Lipase 30 U/L (13-60); Osmolality Calculated 290 mOsm/kg (285-295); Potassium 4.0 mmol/L (3.5-5.1); Sodium 140 mmol/L (136-145); Total Protein 7.4 g/dL (6.6-8.7)
[2025-08-11 20:11] LABS: Glucose Urine UA Negative (Normal); Nitrate Urine Positive (Negative)
[2025-08-11 20:14] LABS: Add Urine Microscopic? YES
[2025-08-11 20:15] LABS: Specific Gravity, Urine 1.032 (1.005-1.030)
== END 2025-08-11 23:30 | disposition short-term general hospital (02) ==
PROVIDERS: Emergency Provider Physician Assistant; PCP Family Medicine
DX: K82.8 Other specified diseases of gallbladder (principal); K80.63 Calculus of gallbladder and bile duct with acute cholecystitis with obstruction
CPT/HCPCS: 36415; 80053; 81001; 83690; 85025; 96361; 96374; 96375; 99284; J2270; J2405; J7030